=== PATIENT | male | born 1945 | race Caucasian/White ===

== ENCOUNTER 2018-07-12 16:23 | Inpatient (IN) ==
--- NOTE | 2018-07-12 16:52 | XR ---
EXAM DATE: 07/12/2018 4:50 PM EST AGE/SEX: 72 years / Male INDICATIONS: Chest pain. CLINICAL DATA: This is the patient's initial encounter. Patient reports that signs and symptoms have been present for 1 day and indicates a pain score of 3/10. MEDICAL/SURGICAL HISTORY: Chronic obstructive pulmonary disease. None. COMPARISON: No prior exams available for comparison. FINDINGS: A single AP view of the chest demonstrates the lungs to be symmetrically aerated without evidence of mass, infiltrate or effusion. The cardiomediastinal contours are unremarkable. Osseous structures a re intact. CONCLUSION: Negative examination. Electronically signed by: Florencio Obando MD Board Certified Radiologist 07/12/2018 4:51 PM EST
--- NOTE | 2018-07-12 17:01 | ED ---
HPI General Chief Complaint: Chest Pain Stated Complaint: Chest Pain Time Seen by Provider: 07/12/18 16:33 Source: patient Mode of arrival: ambulatory Limitations: no limitations History of Present Illness HPI narrative: The patient is a 72-year-old male who presents to the emergency department for chest pain. The patient states he has had a 2-week history of intermittent chest pain. The chest pain is described as "a belt around my chest ", nonradiating, worse with exertion, and alleviated at rest. The patient does note mild shortness of breath with exertion without any nausea or vomiting. He does note intermittent diaphoresis. The patient does have a history of hypertension but denies any known history of hyperlipidemia, diabetes , or history of CAD. The patient does have a history of tobacco use. [facility] and [facility] advised him to come to the emergency department. Symptoms are moderate, worse with exertion, and alleviated at rest. The patient received aspirin and nitroglycerin prior to arrival and is chest pain-free upon arrival. MD complaint: Reports chest pain STEMI Alert: No Onset (ago): week(s) Duration: intermittent Onset: during exertion Pain location: Reports substernal Severity: moderate Severity scale (1-10): 5 Quality: Reports tightness Pain radiation: Reports none Relieving factors: rest Exacerbating factors: exertion Associated symptoms: Reports diaphoresis and dyspnea Treatments prior to arrival chest pain: Reports aspirin and nitroglycerin Related Data Allergies Allergy/AdvReac Type Severity Reaction Status Date / Time No Known Allergies Allergy Verified 07/12/18 16:34 Review of Systems ROS: all other systems reviewed are negative [facility] Social History Social History Second Hand Smoke Exposure: Yes Smoking Status: Current every day smoker Tobacco Type: Cigarettes How Often Do You Have a Drink Containing Alcohol: 4 or more times a week Recent Travel in [facility] within the Last 8 Weeks: No Recent Out of Country Travel within the Last 8 Weeks: No Immunization History Tetanus Immunization: <5 Years Exam Narrative Exam Narrative: GENERAL: Awake, alert, pleasant 72-year-old male who appears his stated age and is in no acute respiratory distress. SKIN: Focused skin assessment warm/dry. HEAD: Atraumatic. Normocephalic. EYES: Pupils equal and round. No scleral icterus. No injection or drainage. ENT: No nasal bleeding or discharge. Mucous membranes pink and moist. NECK: Trachea midline. No JVD. CARDIOVASCULAR: Regular rate and rhythm. No murmur appreciated. RESPIRATORY: No accessory muscle use. Clear to auscultation. Breath sounds equal bilaterally. GASTROINTESTINAL: Abdomen soft, non-tender, nondistended. No rebound tenderness. MUSCULOSKELETAL: No obvious deformities. No clubbing. No cyanosis. No edema. NEUROLOGICAL: Awake and alert. No obvious cranial nerve deficits. Motor grossly within normal limits. Normal speech. PSYCHIATRIC: Appropriate mood and affect; insight and judgment normal. Course Initial Documented Vital Signs Pulse Rate 76 07/12/18 16:37 Respiratory Rate 18 07/12/18 16:37 Blood Pressure 197/96 H 07/12/18 16:37 Pulse Oximetry 97 07/12/18 16:37 Last Documented Vital Signs Pulse Rate 76 07/12/18 16:37 Respiratory Rate 18 07/12/18 16:37 Blood Pressure 197/96 H 07/12/18 16:37 Pulse Oximetry 98 07/12/18 16:42 Critical Care Time Critical Care Time: Yes Total Critical Care Time: 35 Attestation: Aggregate critical care time was 35 minutes. Time to perform other separately billable procedures was not included in the critical care time. My time did not include minutes spent treating any other patients simultaneously or on activities that did not directly contribute to the patient's treatment. The services I provided to this patient were to treat and/or prevent clinically significant deterioration that could result in: Arrhythmia, dysrhythmia, myocardial infarction, sudden , cardiomyopathy. I provided critical care services requiring my management, as noted below: Chart data review, documentation time, medication orders and management, vital sign assessments/reviewing monitor data, ordering and reviewing lab tests, ordering and interpreting/reviewing x-rays and diagnostic studies, care of the patient and discussion of the patient with the admitting physicians. Medical Decision Making MDM Narrative Medical decision making narrative: IV was established, labs are drawn and sent, and the patient was placed on cardiac telemetry monitoring and continuous pulse oximetry monitoring. EKG was ordered and interpreted. The patient received aspirin and nitroglycerin sublingual prior to arrival, his chest pain-free upon arrival. Troponin and CPK were sent to lab. The patient's EKG is unremarkable. Chest x-ray is negative. Troponin is positive at 0.06. The patient has hypertension and tobacco use, has exertional chest pain with tightness that is alleviated at rest, sounds like classic angina. Therefore, the on-call android ios developer was paged to evaluate if the patient should be placed on heparin, he may benefit from cardiac catheterization and/or further evaluation with stress testing. The patient will be admitted to the on-call medical service. I discussed the patient with Dr. Tripathi who agrees with heparinization, patient will be kept n.p.o. after midnight. I discussed the patient with the medical service who agrees with admission. Medical Screen Exam Complete: Yes Emergency Medical Condition: Yes Differential Diagnosis Differential Diagnosis: Differential diagnosis includes STEMI, ACS, cardiomyopathy, pulmonary embolism, deconditioning, COPD exacerbation. Lab Data Result diagrams: 07/12/18 16:50 07/12/18 16:50 Lab Results 07/12/18 07/12/18 Range/Units 16:50 16:50 WBC 6.1 (4.0-11.0) th/mm3 RBC 4.29 L (4.50-5.90) mil/mm3 Hgb 14.5 (13.0-17.0) gm/dL Hct 42.6 (39.0-51.0) % MCV 99.3 (80.0-100.0) fL MCH 33.9 (27.0-34.0) pg MCHC 34.1 (32.0-36.0) % RDW 13.1 (11.6-17.2) % Plt Count 150 (150-450) th/mm3 MPV 9.3 (7.0-11.0) fL Neut % (Auto) 66.6 (16.0-70.0) % Lymph % (Auto) 24.8 (9.0-44.0) % [place] % (Auto) 6.4 (0.0-8.0) % Eos % (Auto) 1.6 (0.0-4.0) % Baso % (Auto) 0.6 (0.0-2.0) % Neut # (Auto) 4.1 (1.8-7.7) th/mm3 Lymph # (Auto) 1.5 (1.0-4.8) th/mm3 [place] # (Auto) 0.4 (0.0-0.9) th/mm3 Eos # (Auto) 0.1 (0.0-0.4) th/mm3 Baso # (Auto) 0.0 (0.0-0.2) th/mm3 WBC Differential . Differential Comment Auto diff final Sodium 141 (136-145) meq/L Potassium 3.8 (3.5-5.1) meq/L Chloride 108 H (98-107) meq/L Carbon Dioxide 28.1 (21.0-32.0) meq/L Anion Gap 5 (5-15) meq/L BUN 14 (7-18) mg/dL Creatinine 0.92 (0.60-1.30) mg/dL Estimated GFR 81 L (>89) mL/min Random Glucose 93 (74-106) mg/dL Calcium 8.7 (8.5-10.1) mg/dL Magnesium 1.8 (1.5-2.5) mg/dL Total Bilirubin 0.4 (0.2-1.0) mg/dL AST 13 L (15-37) U/L ALT 17 (12-78) U/L Alkaline Phosphatase 62 (45-117) U/L Total Creatine Kinase 89 (39-308) U/L Troponin I 0.06 H (0.02-0.05) ng/mL Total Protein 6.8 (6.4-8.2) g/dL Albumin 3.6 (3.4-5.0) g/dL Lipase 68 L (73-393) U/L Imaging Data Radiologist's impression: Chest X-Ray 07/12/18 16:34 CONCLUSION: Negative examination. ECG Data EKG Prior to Arrival: Yes Attestation: I personally reviewed and interpreted this ECG as follows: Interpretation: EKG reveals normal sinus rhythm with a rate of 79. No ischemic changes or ectopy noted. Discharge Plan Discharge Disposition Patient Disposition: ED Admit(ED Internal Use Only) Discharge Condition Condition: Stable Discharge Order Discharge Orders: ED Use Only Admit Order (Routine); Ordered 07/12/18 Ordered By: Del Mcguire Discharge Details Diagnosis: ACS (acute coronary syndrome) Physicians Team ED Provider: Del Mcguire Primary Care Provider: [facility] Other Providers: Adalberto Tripathi Discharge Instructions Patient Printed Instructions: Chest Pain (ED) Status ED Status: Admitted Patient
[2018-07-12 17:04] LABS: Baso % (Auto) 0.6 % (0.0-2.0); Eos # (Auto) 0.1 th/mm3 (0.0-0.4); Eos % (Auto) 1.6 % (0.0-4.0); Hematocrit 42.6 % (39.0-51.0); Hemoglobin 14.5 gm/dL (13.0-17.0); Lymph # (Auto) 1.5 th/mm3 (1.0-4.8); Lymph % (Auto) 24.8 % (9.0-44.0); Mean Corpuscular HGB Conc 34.1 % (32.0-36.0); Mean Corpuscular Hemoglobin 33.9 pg (27.0-34.0); Mean Corpuscular Volume 99.3 fL (80.0-100.0); Mean Platelet Volume 9.3 fL (7.0-11.0); Mono # (Auto) 0.4 th/mm3 (0.0-0.9); Mono % (Auto) 6.4 % (0.0-8.0); Neut # (Auto) 4.1 th/mm3 (1.8-7.7); Neut % (Auto) 66.6 % (16.0-70.0); Platelet Count 150 th/mm3 (150-450); Red Blood Count 4.29 mil/mm3 (4.50-5.90); Red Cell Distribution Width 13.1 % (11.6-17.2); White Blood Count 6.1 th/mm3 (4.0-11.0)
[2018-07-12 17:19] LABS: Albumin 3.6 g/dL (3.4-5.0); Anion Gap 5 meq/L (5-15); Aspartate Aminotransferase 13 U/L (15-37); Blood Urea Nitrogen 14 mg/dL (7-18); Calcium 8.7 mg/dL (8.5-10.1); Carbon Dioxide 28.1 meq/L (21.0-32.0); Chloride 108 meq/L (98-107); Glomerular Filtration Rate 81 mL/min (>89); Glucose,Random 93 mg/dL (74-106); Lipase 68 U/L (73-393); Magnesium 1.8 mg/dL (1.5-2.5); Potassium 3.8 meq/L (3.5-5.1); Sodium 141 meq/L (136-145)
[2018-07-12 17:20] LABS: Alanine Aminotransferase 17 U/L (12-78)
[2018-07-12 17:24] LABS: Alkaline Phosphatase 62 U/L (45-117); Total Protein 6.8 g/dL (6.4-8.2); Troponin I 0.06 ng/mL (0.02-0.05)
[2018-07-12 17:25] LABS: Creatine Kinase 89 U/L (39-308)
[2018-07-12] MEDS ORDERED: Heparin Drip 25,000 UNIT/250 ML BAG IV.CONT PRN (18:01)
[2018-07-12] MEDS ORDERED: Heparin 10,000 UNITS/10 ML Vial (for IV use) IV.PUSH STA (18:01)
[2018-07-12] MEDS ORDERED: Bisacodyl 10 MG Supp RECTAL PRN (18:16)
[2018-07-12] MEDS ORDERED: Acetaminophen 325 MG Tablet PO PRN (18:16)
[2018-07-12 19:12] LABS: Activated Partial Thrombo Time 28.1 sec (23.4-31.7)
--- NOTE | 2018-07-12 19:15 | P.HPIM ---
History of Present Illness Primary Care Physician: [facility] Chief Complaint: Chest pain History of Present Illness: 72-year-old gentleman presents with complaints of midsternal left-sided chest pain and tightness has been intermittent for the past 2 weeks. Onset is with exertion he has to stop and catch his breath and feels a tightness across his left chest moderate severe associated with shortness of breath that improves with slowing down and resting. He denies radiation, diaphoresis, nausea vomiting or palpitations. He was trying to set up outpatient appointment with his primary care physician when the nurse recommended he go to the emergency room. He denies any cardiac history. He states he recently stopped all his pain chronic pain medications and his antidepressant because he started vaping medical marijuana. He believes that his recent Botox injection in the cervical spine 2 weeks ago that he had done for essential tremor caused worsening shortness of breath and numbness and lower 70 weakness. He also feels some shortness of breath may be related to the fact that he switch to vaping and was using it too much. Breathing is better since he cut back. PMhx: Hypertension, COPD, chronic hepatitis B, benign essential tremors, chronic pain syndrome with sciatica PSXhx: Fatty tumor removed from his back, most surgery x2 on his face SOChx: He smoked a bonk and recently switched to vaping, using medical marijuana., Was drinking vodka heavily about a month ago but now only occasionally FAMhx: Father had coronary artery disease, brother had an [facility] and 2 vessel bypass at 75 years old Inpatient Certification Inpatient Certification: I certify that the inpatient services were ordered in accordance with Medicare regulations governing the order. This includes certification that hospital inpatient services are reasonable and necessary and in the case of services not specified as inpatient-only under 42 CFR 419.22(n), that they are appropriately provided as inpatient services in accordance to with the 2-midnight benchmark under 43 CFR 412.3(e) Review of Systems Review of Systems: all other systems reviewed are negative [facility] Social History Social History Substance History: No History of Abuse Second Hand Smoke Exposure: No Smoking Status: Never smoker Tobacco Type: Cigarettes How Often Do You Have a Drink Containing Alcohol: Never Recent Travel in [place] within the Last 8 Weeks: No Recent Out of Country Travel within the Last 8 Weeks: No Immunization History Tetanus Immunization: <5 Years Medications and Allergies Allergies Allergy/AdvReac Type Severity Reaction Status Date / Time No Known Allergies Allergy Verified 07/12/18 16:34 Active Medications: Active Medications Acetaminophen (Tylenol) 650 mg PO Q4H PRN PRN Reason: Temp > 100.4 Al Hydroxide/Mg Hydroxide (Milk Of Magnesia Liq) 30 ml PO Q12H PRN PRN Reason: Mild Constipation Bisacodyl (Dulcolax Supp) 10 mg RECTAL DAILY PRN PRN Reason: SEVERE CONSITIPATION Heparin Sodium (Porcine) (Heparin Inj) 2,500 units IV.PUSH UNSCH PRN PRN Reason: aPTT 25-39 Heparin Sodium/Dextrose (Heparin/D5w 25,000 U/250 Ml) 25,000 unit in 250 mls @ 0.12 mls/hr IV.CONT TITRATE PRN; Protocol PRN Reason: Per Protocol Lactulose (Lactulose Liq) 30 ml PO DAILY PRN PRN Reason: SEVERE CONSITIPATION Ondansetron HCl (Zofran Inj) 4 mg IV.PUSH Q6H PRN PRN Reason: NAUSEA OR VOMITING Senna/Docusate Sodium (Janice-Colace) 1 tab PO BID [facility] Sennosides (Senokot) 17.2 mg PO Q12H PRN PRN Reason: Moderate Constipation Sodium Chloride (Ns Flush) 2 ml IV.FLUSH UNSCH PRN PRN Reason: FLUSH AFTER USING IV ACCESS Sodium Chloride (Ns Flush) 2 ml IV.FLUSH PRN PRN PRN Reason: FLUSH AFTER USING IV ACCESS Sodium Chloride (Ns Flush) 2 ml IV.FLUSH BID [facility] Physical Exam Vital signs: Last Vital Signs Pulse 81 07/12/18 18:41 Resp 20 07/12/18 18:41 BP 134/63 07/12/18 18:41 Pulse Ox 96 07/12/18 18:41 Intake & Output 07/10/18 07/11/18 07/12/18 07/13/18 06:59 06:59 06:59 06:59 Weight 97.522 kg GEN well-developed well-nourished white 72-year-old male awake alert oriented to person time and place, pleasant in no acute distress speaking in full sentences, HEENT normocephalic atraumatic, Pupils equal reactive, sclerae anicteric, extraocular motion intact, mucosa is moist. posterior pharynx without exudate NECK supple no JVD trachea midline thyroid smooth not enlarged ANT CHEST WALL without mass or tenderness to palpation HEART S1-S2 regular without murmur gallops or clicks LUNGS clear to auscultation without wheeze rales or rhonchi , full symmetric expansion, no dullness to percussion BACK exam is no CVA tenderness or mass ABDOMEN soft nondistended positive bowel sounds no guarding rebound rigidity LYMPH NODES no cervical, axillary or inguinal adenopathy noted EXTREMITIES no clubbing cyanosis or significant edema, peripheral pulses palpable +2 NEUROLOGIC cranial nerves II through XII appear grossly intact, strength is 5 out of 5 symmetrical no clonus or rigidity SKIN warm and dry with good turgor, no other rash or sores noted Results Labs CBC & Chem 7: 07/12/18 16:50 07/12/18 16:50 Imaging Impressions Chest X-Ray 07/12/18 16:34 CONCLUSION: Negative examination. Caprini VTE Risk Assessment Caprini VTE Risk Assessment: Moderate/High Risk (score >= 2) Caprini Risk Assessment Model: Point Value = 1 Point Value = 2 Point Value = 3 Point Value = 5 Age 41-60 Minor surgery BMI > 25 kg/m2 Swollen legs Varicose veins or History of unexplained or recurrent spontaneous Oral contraceptives or hormone replacement Sepsis (< 1 month) Serious lung disease, including pneumonia (< 1 month) Abnormal pulmonary function Acute myocardial infarction Congestive heart failure (< 1 month) History of inflammatory bowel disease Medical patient at bed rest Age 61-74 Arthroscopic surgery Major open surgery (> 45 min) Laparoscopic surgery (> 45 min) Malignancy Confined to bed (> 72 hours) Immobilizing plaster cast Central venous access Age >= 75 History of VTE Family history of VTE Factor V Leiden Prothrombin [id number] Lupus anticoagulant Anticardiolipin antibodies Elevated serum homocysteine Heparin-induced thrombocytopenia Other congenital or acquired thrombophilia Stroke (< 1 month) Elective arthroplasty Hip, pelvis, or leg fracture Acute spinal cord injury (< 1 month) Prophylaxis Regimen: Total Risk Factor Score Risk Level Prophylaxis Regimen 0-1 Low Early ambulation 2 Moderate Order ONE of the following: *Sequential Compression Device (SCD) *Heparin 5000 units SQ BID 3-4 Higher Order ONE of the following medications: *Heparin 5000 units SQ TID *Enoxaparin/Lovenox 40 mg SQ daily (WT < 150 kg, CrCl > 30 mL/min) *Enoxaparin/Lovenox 30 mg SQ daily (WT < 150 kg, CrCl > 10-29 mL/min) *Enoxaparin/Lovenox 30 mg SQ BID (WT < 150 kg, CrCl > 30 mL/min) AND/OR *Sequential Compression Device (SCD) 5 or more Highest Order ONE of the following medications: *Heparin 5000 units SQ TID (Preferred with Epidurals) *Enoxaparin/Lovenox 40 mg SQ daily (WT < 150 kg, CrCl > 30 mL/min) *Enoxaparin/Lovenox 30 mg SQ daily (WT < 150 kg, CrCl > 10-29 mL/min) *Enoxaparin/Lovenox 30 mg SQ BID (WT < 150 kg, CrCl > 30 mL/min) AND *Sequential Compression Device (SCD) Assessment and Plan Plan [place]- asa, bb, ntg, hep gtt, tele, cardiac enzymes and cardiology consult, plan for cath in am, HTN - cont home meds COPD - stable nebs prn DEPRESSION ANXIETY - took himself off his meds recently, stable CHRONIC PAIN SYNDROME - using medical marijuana at home
[2018-07-12 19:39] LABS: Troponin I 0.08 ng/mL (0.02-0.05)
[2018-07-12] MEDS: Senna/Docusate Sodium 8.6/50 MG Tablet PO SCH (21:06)
[2018-07-13] MEDS ORDERED: Heparin 10,000 UNITS/10 ML Vial (for IV use) IV.PUSH PRN (00:01)
[2018-07-13 01:53] LABS: Troponin I 0.07 ng/mL (0.02-0.05)
[2018-07-13] MEDS ORDERED: Metoprolol Tartrate 25 MG Tablet PO SCH (05:00)
[2018-07-13 07:44] LABS: Hematocrit 40.5 % (39.0-51.0); Hemoglobin 13.7 gm/dL (13.0-17.0); Mean Corpuscular HGB Conc 33.9 % (32.0-36.0); Mean Corpuscular Hemoglobin 33.4 pg (27.0-34.0); Mean Corpuscular Volume 98.4 fL (80.0-100.0); Mean Platelet Volume 9.1 fL (7.0-11.0); Platelet Count 142 th/mm3 (150-450); Red Blood Count 4.12 mil/mm3 (4.50-5.90); Red Cell Distribution Width 12.8 % (11.6-17.2); White Blood Count 4.1 th/mm3 (4.0-11.0)
--- NOTE | 2018-07-13 08:32 | P.CONCA ---
History of Present Illness Primary [facility] Provider: [facility] Chief Complaint: Chest pain History of Present Illness: 72-year-old male smoker with chronic pain who presented for chest pain. The patient states that for the past 2 weeks he has been noticing chest pressure across the front of his chest when he exerts himself with activities such as mowing the lawn. He states he rests and then chest pain usually goes away in 5 minutes. Associated shortness of breath. He has not noticed any radiation of the pain, but unsure because he has chronic pain everywhere. Denies associated nausea. He continues to smoke 1 pack/day. He is concerned because his father and brother had heart bypasses in their 70s. His EKG shows NSR with no ischemic changes. His troponins are 0.06, 0.08, 0.07. Review of Systems All other systems reviewed negative except as stated in HPI PMFSH - History History Provided By: Patient, Medical Record - Tobacco History Second Hand Smoke Exposure: No Tobacco Use In Past 30 Days: Yes Smoking Status: Current every day smoker Tobacco Type: Cigarettes - Alcohol History How Often Do You Have a Drink Containing Alcohol: Never - Substance Use History Substance History: No History of Abuse - Travel History Recent Travel in the [place] Within the Last 8 Weeks: No Recent Travel Out of the Country Within the Last 8 Weeks: No - Immunization History Tetanus Immunization: <5 Years Medications and Allergies Allergies Allergy/AdvReac Type Severity Reaction Status Date / Time No Known Allergies Allergy Verified 07/12/18 16:34 Active Medications: Active Medications Acetaminophen (Tylenol) 650 mg PO Q4H PRN PRN Reason: Temp > 100.4 Al Hydroxide/Mg Hydroxide (Milk Of [place]) 30 ml PO Q12H PRN PRN Reason: Mild Constipation Bisacodyl (Dulcolax Supp) 10 mg RECTAL DAILY PRN PRN Reason: SEVERE CONSITIPATION Heparin Sodium (Porcine) (Heparin Inj) 2,500 units IV.PUSH UNSCH PRN PRN Reason: aPTT 25-39 Last Admin: 07/13/18 01:16 Dose: 2,500 units Heparin Sodium/Dextrose (Heparin/D5w 25,000 U/250 Ml) 25,000 unit in 250 mls @ 0.12 mls/hr IV.CONT TITRATE PRN; Protocol PRN Reason: Per Protocol Last Titration: 07/13/18 04:06 Dose: 1,100 units/hr, 11 mls/hr Lactulose (Lactulose Liq) 30 ml PO DAILY PRN PRN Reason: SEVERE CONSITIPATION Ondansetron HCl (Zofran Inj) 4 mg IV.PUSH Q6H PRN PRN Reason: NAUSEA OR VOMITING Senna/Docusate Sodium (Janice-Colace) 1 tab PO BID [facility] Last Admin: 07/12/18 21:06 Dose: Not Given Sennosides (Senokot) 17.2 mg PO Q12H PRN PRN Reason: Moderate Constipation Sodium Chloride (Ns Flush) 2 ml IV.FLUSH UNSCH PRN PRN Reason: FLUSH AFTER USING IV ACCESS Sodium Chloride (Ns Flush) 2 ml IV.FLUSH PRN PRN PRN Reason: FLUSH AFTER USING IV ACCESS Sodium Chloride (Ns Flush) 2 ml IV.FLUSH BID [facility] Last Admin: 07/12/18 21:06 Dose: Not Given Exam Vital signs: Vital Signs 07/12/18 16:37 07/12/18 16:42 07/12/18 18:41 Temperature Pulse Rate 76 81 Respiratory Rate 18 20 Blood Pressure 197/96 H 134/63 Pulse Oximetry 97 98 96 07/12/18 19:16 07/12/18 20:00 07/13/18 00:00 Temperature 98.6 F 98.0 F Pulse Rate 71 68 59 L Respiratory Rate 16 18 18 Blood Pressure 130/61 152/73 H 121/69 Pulse Oximetry 96 98 96 07/13/18 04:00 Temperature 97.5 F L Pulse Rate 53 L Respiratory Rate 18 Blood Pressure 133/71 Pulse Oximetry 94 L Intake & Output 07/12/18 07/13/18 07/13/18 18:59 06:59 18:59 Weight 215 lb 214 lb 15.987 oz Other: Weight On Admission 214 lb 15.987 oz Narrative: GENERAL: Well-developed well-nourished. In no acute distress. NECK: No carotid bruits. No JVD. CARDIOVASCULAR: Regular rate and rhythm. No murmur appreciated. RESPIRATORY: No accessory muscle use. Clear to auscultation. Breath sounds equal bilaterally. MUSCULOSKELETAL: No clubbing or cyanosis. No edema. NEUROLOGICAL: Awake and alert. Normal speech. Results 07/13/18 07:02 07/12/18 16:50 Cardiac Enzymes 07/12/18 07/12/18 07/12/18 Range/Units 16:50 16:50 18:48 AST 13 L (15-37) U/L Troponin I 0.06 H 0.08 H (0.02-0.05) ng/mL B-Natriuretic Peptide 28 (0-100) pg/mL 07/13/18 Range/Units 00:39 AST (15-37) U/L Troponin I 0.07 H (0.02-0.05) ng/mL B-Natriuretic Peptide (0-100) pg/mL Coagulation 07/12/18 07/12/18 07/13/18 Range/Units 16:50 18:48 00:39 PT 10.0 (9.8-11.6) sec APTT 28.1 42.9 H D (23.4-31.7) sec B-Natriuretic Peptide 28 (0-100) pg/mL 07/13/18 Range/Units 07:02 PT (9.8-11.6) sec APTT 45.2 H (23.4-31.7) sec B-Natriuretic Peptide (0-100) pg/mL CBC 07/12/18 07/13/18 Range/Units 16:50 07:02 WBC 6.1 4.1 (4.0-11.0) th/mm3 RBC 4.29 L 4.12 L (4.50-5.90) mil/mm3 Hgb 14.5 13.7 (13.0-17.0) gm/dL Hct 42.6 40.5 (39.0-51.0) % Plt Count 150 142 L (150-450) th/mm3 Neut # (Auto) 4.1 (1.8-7.7) th/mm3 Lymph # (Auto) 1.5 (1.0-4.8) th/mm3 [place] # (Auto) 0.4 (0.0-0.9) th/mm3 Eos # (Auto) 0.1 (0.0-0.4) th/mm3 Baso # (Auto) 0.0 (0.0-0.2) th/mm3 Comprehensive Metabolic Panel 07/12/18 Range/Units 16:50 Sodium 141 (136-145) meq/L Potassium 3.8 (3.5-5.1) meq/L Chloride 108 H (98-107) meq/L Carbon Dioxide 28.1 (21.0-32.0) meq/L BUN 14 (7-18) mg/dL Creatinine 0.92 (0.60-1.30) mg/dL Calcium 8.7 (8.5-10.1) mg/dL AST 13 L (15-37) U/L ALT 17 (12-78) U/L Alkaline Phosphatase 62 (45-117) U/L Total Protein 6.8 (6.4-8.2) g/dL Albumin 3.6 (3.4-5.0) g/dL Intake and Output 07/12/18 07/13/18 07/13/18 22:59 06:59 14:59 Other: Weight 214 lb 15.987 oz Weight On Admission 214 lb 15.987 oz - Imaging and Cardiology Imaging: Impressions Chest X-Ray 07/12/18 16:34 CONCLUSION: Negative examination. Assessment and Plan - Plan 72-year-old male smoker with chronic pain who presented for chest pain Unstable angina: N.p.o. for [facility] today. Currently on heparin GTT, continue for now. Start aspirin 81 mg daily. Check lipid profile. Hold off on beta- sarah for now with resting bradycardia. Discussed Condition With: Patient, RN, Dr. Tripathi - Attending Attestation Suggestive of unstable anginal symptoms consistent with acute coronary syndrome High pretest likelihood for coronary artery disease Proceed directly with cardiac catheterization Risks, benefits, and alternatives discussed with the patient, patient understood and agrees to proceed.
[2018-07-13] MEDS: Senna/Docusate Sodium 8.6/50 MG Tablet PO SCH ×2 (09:00→22:34)
[2018-07-13 10:05] LABS: Chol/HDL Ratio 2.91 Ratio; HDL Cholesterol 50.8 mg/dL (40.0-60.0)
[2018-07-13] MEDS ORDERED: fentaNYL Citrate Inj 100 MCG/2 ML Ampul ONE (11:26)
[2018-07-13] MEDS ORDERED: Heparin/NS PF Inj 1,000 ML ONE (11:26)
[2018-07-13] MEDS ORDERED: Heparin 10,000 UNITS/10 ML Vial (for IV use) ONE (11:27)
--- NOTE | 2018-07-13 11:51 | CATHPROC ---
Patient Name: Sonido Hameed Study #: [id number] Initial MD: Adalberto Tripathi Date of : 1945 Study Date: 07/13/2018 Cardiac Catheterization Report 07/13/2018 12:13:29 PM Financial #: [id number] 1 of 10 Patient Name: Sonido Hameed Study #: [id number] Initial MD: Adalberto Tripathi Date of : 1945 Study Date: 07/13/2018 Entire Case Report Patient Information Patient Name Sonido Hameed Date of 1945 Age 72 years Financial # [id number] Gender M AlternateID Lab Number 3 Room Number G78 Height (in) 71.0 Height (cm) 180.3 BSA 2.17 Weight (lbs) 214.0 Weight (kg) 97.3 Patient Address/Phone Number Home Address [facility] Home Phone Number [address] [facility] [address] Study Information Study Number Admission Scheduled Start Study Start [id number] Jul 12 2018 6:22PM 07/13/2018 Jul 13 2018 10:45AM Basye Service Cardiac Pacer/ICD Admit Source Facility Department Emergency department [facility] Physician and Clinical Staff Initial Adalberto Osuna Electrical Equipment Assembler Evangelina Cat,RN Other cathlab, cathlab Recorder Jefry Chapman RCIS(BS) Scrub Inga Rooney RT(R) Procedures Performed Procedure Location (Site) Vessel Name Coronary Angiograms LCA Left Coronary Coronary Angiograms RCA Right Coronary L Heart Cath 07/13/2018 12:13:29 PM Financial #: [id number] 2 of 10 Patient Name: Sonido Hameed Study #: [id number] Initial MD: Adalberto Tripathi Date of : 1945 Study Date: 07/13/2018 Equipment Time Asian Art Curator Description Size Mfg Part Number Used/Scraped TRANSDUCER, TRUWAVE [id number] 10:46 JOHNS MORRISON * Used W/STOCKCOCK *[id number] 534-518T *[id number] 534-523T *[id number] 10:46 MEDLINE INDUSTRIES BLANKET,WARM AIR CCL * Used *[id number] 10:46 PowerFile PACK, CCL CUSTOM * Used *[id number] 10:46 PowerFile SUPPORT, ARTERIAL ADULT [id number] *[id number] Used BAND, RADIAL COMPRESSION TR [id number] 11:46 Lanyon 24CM Used SHORT 24 *[id number] SHEATH, FR6 RADIAL PRELUDE 10:46 Lanyon FR 6 [id number] Used EASE 11CM [id number] 10:46 Lanyon WIRE, EXCHANGE 260CM 3MMJ 260CM Used *[id number] 10:46 NAMIC MANIFOLD, 4 PORT * Used *[id number] 10:46 NYCOMED OMNIPAQUE, 350 MG, 150ML 150ML [id number] Used Insurance Information Insurance Payor [facility], Medicare Third Alliance Party Third Alliance Party Number NF [facility] History: Allergies Allergy Reaction No Known Allergies History: Risk Factors Family History of Hypertension Dyslipidemia Previous VT Previous Heart Failure Premature CAD Yes No Yes No No Prior Valve Prior PCI Prior CABG Surgery No No No Cerebrovascular Peripheral Artery Chronic Lung On Dialysis Diabetes Disease Disease Disease No No No Yes No History: Symptoms/Diagnosis Selection Items Chest pain 07/13/2018 12:13:29 PM Financial #: [id number] Patient Name: Sonido Hameed Study #: [id number] Initial MD: Adalberto Tripathi Date of : 1945 Study Date: 07/13/2018 History: Stress Tests Stress or Imaging Studies Performed No History: Other Disease Selection Items HTN History: Other Current Smoker Method Packs a Day Years Used Pack Years Yes Cigarettes 1 54 54 Labs Hgb (g/dl) Hct (%) WBC (l/cumm) Platelets (thousands) 11.60-17.00 35.00-51.00 4.00-11.00 150.00-450.00 13.7 40.5 4.1 142 Glucose (mg/dl) BUN (mg/dl) Creatinine (mg/dl) BUN:Creatinine (1:x) 74.00-106.00 7.00-18.00 0.50-1.30 10.00-20.00 93 14 0.9 15.6 Na (meq/l) K (meq/l) 136.00-145.00 3.50-5.10 141 3.8 INR (PTT:PT) 0.90-1.10 1 Troponin I (ng/ml) CPK-MB (ng/ML) 0.02-0.05 0.50-3.60 0.07 Not Drawn Medication Medication Total Dose (Bolus/Oral) Medication Total Dosage/Unit 1% XYLOCAINE 2 mL FENTANYL 75 mcg HEPARIN 3000 units NTG (IC) 200 mcg VERSED 3 mg 07/13/2018 12:13:29 PM Financial #: [id number] Patient Name: Sonido Hameed Study #: [id number] Initial MD: Adalberto Tripathi Date of : 1945 Study Date: 018 Medications (Bolus/Oral) Medication Time Given Dosage/Unit Administered By Reason 07/13/2018 11:30:36 VERSED 2 mg Evangelina Cat AM 2 mg VERSED given in lab by Evangelina Cat RN in Left Forearm via Peripheral IV. Ordered by Adalberto Tripathi. 07/13/2018 11:30:46 FENTANYL 50 mcg Evangelina Cat AM 50 mcg FENTANYL given in lab by Evangelina Cat RN in Left Forearm via Peripheral IV. Ordered by Adalberto Ríos. 07/13/2018 11:34:59 1% XYLOCAINE 2 mL Adalberto Tripathi AM 2 mL 1% XYLOCAINE given in lab by Adalberto Tripathi in Right Radial via Subcutaneous. 07/13/2018 11:36:10 FENTANYL 25 mcg Evangelina Cat AM 25 mcg FENTANYL given in lab by Evangelina Cat RN in Left Forearm via Peripheral IV. Ordered by Adalberto Ríos. 07/13/2018 11:36:35 NTG (IC) 200 mcg Adalberto Tripathi AM 200 mcg NTG (IC) given in lab by Adalberto Tripathi in Right Radial via Intra-arterial. 07/13/2018 11:38:19 VERSED 1 mg Evangelina Cat AM 1 mg VERSED given in lab by Evangelina Cat RN in Left Forearm via Peripheral IV. Ordered by Adalberto Tripathi. 07/13/2018 11:39:09 HEPARIN 3000 units Evangelina Cat AM 3000 units HEPARIN given in lab by Evangelina Cat RN in Left Forearm via Peripheral IV. Ordered by Adalberto Tripathi. Medication (Drip) Medication Time Given Dosage/Unit Concentration/Unit Diluent (ml) Solutio n 07/13/2018 11:16:35 IV Solutions 0 mL (IV) 500 NaCl .9 AM IV Solutions given in lab by Evangelina Cat, NADIA via Peripheral IV. Pump/Drip Flow = 20 ml/hr using N aCl .9. Ordered by Adalberto Tripathi. 07/13/2018 12:13:29 PM Financial #: [id number] 5 of 10 Patient Name: Sonido Hameed Study #: [id number] Initial MD: Adalberto Tripathi Date of : 1945 Study Date: 07/13/2018 Initial Case Assessment Cardiovascular HR Rhythm NIBP Chest Pain 72 nsr 180/88 0 Edema Present Skin color Skin None Normal Warm Dry Circulatory - Right Pulses Dorsalis Pedis Femoral Radial 2 2 2 Scale (0,1,2,3,4,d) Scale (0,1,2,3,4,d) Neurological State Oriented to time-place- Alert Moves all extremities person Respiration - General Respiration Rate SpO2 (%) (B/min) 15 93 Final Case Assessment Cardiovascular HR Rhythm NIBP Chest Pain 76 nsr 166/94 0 Edema Present Skin color Skin None Normal Warm Dry Circulatory - Right Pulses Dorsalis Pedis Femoral Radial 2 2 2 Scale (0,1,2,3,4,d) Scale (0,1,2,3,4,d) Neurological State Oriented to time-place- Alert Moves all extremities person Respiration - General Respiration Rate SpO2 (%) (B/min) 15 93 07/13/2018 12:13:29 PM Financial #: [id number] 6 of 10 Patient Name: Sonido Hameed Study #: [id number] Initial MD: Adalberto Tripathi Date of : 1945 Study Date: 8 Vitals Summary Pain Time HR NIBP SpO2 Resp Temp EtCO2 Apnea Darlene Paulino Comment Level 11:22:32 70 154/117 99.0 12 10 0 2 11:27:38 71 180/88 100.0 13 10 0 2 11:32:39 65 164/87 99.0 12 10 0 2 11:36:53 62 142/72 98.0 20 10 0 2 11:42:27 73 166/94 92.0 8 10 0 2 11:46:47 75 126/75 93.0 11 10 0 2 Darlene Score Summary Time Activity Resp Circ LOC Color Total Score 11:22:32 2 2 2 2 2 10 11:27:38 2 2 2 2 2 10 11:32:39 2 2 2 2 2 10 11:36:53 2 2 2 2 2 10 11:42:27 2 2 2 2 2 10 11:46:47 2 2 2 2 2 10 Darlene Score Definition Table Activity - 0 Activity - 1 Activity - 2 No Movement to Command Weak Hand Grasp Lift Head, Good Hand Grasp Respiration - 0 Respiration - 1 Respiration - 2 Apneic or Obstructed Shallow Breath, Airway Adjunct Deep Breath, Cough Freely Circulation - 0 Circulation - 1 Circulation - 2 B/P > 50% Admission B/P B/P > 20-50% Admission B/P B/P Stable X3 Level of Consciousness - 0 Level of Consciousness - 1 Level of Consciousness - 2 Not Responding Arousable On Calling Awake and Aware Color - 0 Color- 1 Color - 2 Cyanotic Lips, Nailbed, Skin Pale, Dusky [place] Or Normal Chronological Log Time Study Chronological Log 11:06:11 Patient arrived via Bed. 11:06:11 Patient Name, D.O.B, / Armband Verified By R.N. 11:06:12 Consent signed by the physician and the patient and verified by the [facility] staff. 11:06:13 Pre-op and post- op instructions given; patient acknowledges understanding of instruction s. 11:06:14 Presedation assessment performed by [facility] RN. 11:06:15 Allens test performed on the right radial and ulnar artery. POSITIVE. 11:06:20 Immediate Presedation assesment performed by physician. 07/13/2018 12:13:29 PM Financial #: [id number] Patient Name: Sonido Hameed Study #: [id number] Initial MD: Adalberto Tripathi Date of : 1945 Study Date: 07/13/2018 11:06:21 Patient has been NPO for More than 6Hrs. 11:06:31 Patient Warmer Placed on the Table. 11:06:33 Maty Prominences Protected 11:06:34 A # 20 IV was noted in the Wrist (right). Grade = 0 11::35 History and physical on the chart or being dictated. 11:15:00 Reference ECG taken 11:15:11 MD arrived. 11:16:33 A # 20 IV was started in the Forearm (left). Grade = 0 IV Solutions given in lab by Evangelina Cat, NADIA via Peripheral IV. Pump/Drip Flow = 20 ml/hr u sing NaCl .9. Ordered 11:16:35 by Adalberto Tripathi. Vitals capture started with the following parameters, Patient=Adult, Interval=5 min, Initial Pr geudwq=969 mmHg, 11:17:39 Deflation Rate=5 mmHg, Cuff placed on Right Arm Vitals capture started with the following parameters, Patient=Adult, Interval=5 min, Initial Pr bjiqwc=163 mmHg, ::27 Deflation Rate=5 mmHg, Cuff placed on Right Arm Vitals capture started with the following parameters, Patient=Adult, Interval=5 min, Initial Pr xqynxc=731 mmHg, ::06 Deflation Rate=5 mmHg, Cuff placed on Right Arm 11::32 HR=70 bpm, IDGR=575/117 mmhg, SpO2=99.0 %, Resp=12 B/min, Pain=0, Darlene=10, Paulino=2 11:24:42 Right Radial and groin(s) prepped with 2% chlorhexidine, and draped after a 3 min. waiting time. Assessment: Initial Case, HR=72 BPM, Rhythm=nsr, IHJT=682/88 mmhg, Chest Pain=0, Edema=None, Co ella=Normal, Skin = Warm, Dry 11:27:23 Right Pulses: Rocky Ped=2, Femoral=2, Radial=2 Neurological: State=Alert, Ox3, FRAUSTO Respiration: Resp=15 B/min, SpO2=93 % 11:27:38 HR=71 bpm, QLPU=303/88 mmhg, WgJ1=099.0 %, Resp=13 B/min, Pain=0, Darlene=10, Paulino=2 11:30:11 Contrast Scanned 11:30:12 Immediate Presedation assesment performed by physician. Time Out. Correct patient, correct procedure, correct physician, labs, allergies, and equipment verified with mushroom laborer 11:30:13 team present. Fire risk assesment completed (see hard stop sheet for coding). Time Out Conc urred by MD and individual staff in procedure. 11:30:36 2 mg VERSED given in lab by Evangelina Cat RN in Left Forearm via Peripheral IV. Ordered by Adalberto Tripathi. 11:30:46 50 mcg FENTANYL given in lab by Evangelina Cat RN in Left Forearm via Peripheral IV. Orde red by Adalberto Tripathi. 11:32:39 HR=65 bpm, RQJJ=507/87 mmhg, SpO2=99.0 %, Resp=12 B/min, Pain=0, Darlene=10, Paulino=2 11:33:11 Pressure channel 1 zeroed. 11:34:57 Case Start 11:34:59 2 mL 1% XYLOCAINE given in lab by Adalberto Tripathi in Right Radial via Subcutaneous. 11:35:37 Access site was Right Radial Artery . A SHEATH, FR6 RADIAL PRELUDE EASE 11CM FR 6 was advanced into the Radial (right) using the Perc utaneous 11:36:00 technique. 11:36:10 25 mcg FENTANYL given in lab by Evangelina Cat RN in Left Forearm via Peripheral IV. Orde red by Adalberto Tripathi. 11:36:35 200 mcg NTG (IC) given in lab by Adalberto Tripathi in Right Radial via Intra-arterial. 11:36:48 In the Radial (right) the SHEATH, FR6 RADIAL PRELUDE EASE 11CM FR [address] by Adalberto Tripathi. 11:36:53 HR=62 bpm, RMIW=085/72 mmhg, SpO2=98.0 %, Resp=20 B/min, Pain=0, Darlene=10, Paulino=2 A JR 5.0 INFINITI CATHETER FR 5 was advanced over a wire. OMNIPAQUE, 350 MG, 150ML 150ML was us ed for 11:36:55 injections. 07/13/2018 12:13:29 PM Financial #: [id number] Patient Name: Sonido Hameed Study #: [id number] Initial MD: Adalberto Tripathi Date of : 1945 Study Date: 07/13/2018 11:38:19 1 mg VERSED given in lab by Evangelina Cat RN in Left Forearm via Peripheral IV. Ordered by Adalberto Tripathi. Recorded Pressure: LV, HR=83, Condition=Condition 1 11:38:32 (Left Ventricle) LV 116/3/8 Recorded Pressure: LV, Ao, HR=80, Condition=Condition 1 11:38:38 (Left Ventricle) LV 112/3/6, (Aorta) Ao 114/65/86 Recorded Pressure: Ao, HR=68, Condition=Condition 1 11:38:59 (Aorta) Ao 123/70/96 11:39:05 The RCA was injected and visualized at various angles. OMNIPAQUE, 350 MG, 150ML 150ML used . 11:39:09 3000 units HEPARIN given in lab by Evangelina Cat RN in Left Forearm via Peripheral IV. O rdered by Adalberto Tripathi. After removing the current catheter a JL 3.5 INFINITI CATHETER FR 5 was advanced over a WIRE, E XCHANGE 260CM 11:39:36 3MMJ 260CM. 11:42:04 The LCA was injected and visualized at various angles. OMNIPAQUE, 350 MG, 150ML 150ML used . 11:42:27 HR=73 bpm, TKKE=652/94 mmhg, SpO2=92 %, Resp=8 B/min, Pain=0, Darlene=10, Paulino=2 11:45:00 Catheter was removed 11:45:02 Case End (Physician broke scrub) Assessment: Final Case, HR=76 BPM, Rhythm=nsr, MHTR=631/94 mmhg, Chest Pain=0, Edema=None, [place] r=Normal, Skin = Warm, Dry 11:45:44 Right Pulses: Rocky Ped=2, Femoral=2, Radial=2 Neurological: State=Alert, Ox3, FRAUSTO Respiration: Resp=15 B/min, SpO2=93 % 11:45:58 Catheter(s) removed without difficulty 11:46:00 Sterile dressing applied to site Radial Compression Device Used. 11 mLs of air placed in BAND, RADIAL COMPRESSION TR SHORT 24 24 CM. Affected 11:46:01 hand 92 % O2 saturation. 11:46:15 No case complications noted. 11:46:16 Cine recording checked. 11:46:16 Bedside Report will be given. 11:46:19 A Left Heart Cath was performed. 11:46:47 HR=75 bpm, YJXU=306/75 mmhg, SpO2=93.0 %, Resp=11 B/min, Pain=0, Darlene=10, Paulino=2 11:51:35 Vitals capture stopped. 11:51:36 Patient moved to stretcher Recorded Pressures: Condition 1 Time Chamber Pressure Manual Override (*) 11:38:32 LV 116/3/8 s/bd/ed 11:38:38 LV 112/3/6 s/bd/ed 11:38:38 Ao 114/65/86 s/d/m 11:38:59 Ao 123/70/96 s/d/m 07/13/2018 12:13:29 PM Financial #: [id number] Patient Name: Sonido Hameed Study #: [id number] Initial MD: Adalberto Tripathi Date of : 1945 Study Date: 07/13/2018 End Study - Contrast Media Used In Study Contrast Total Opened (mL) Total Used (mL) Total Wasted (mL) Omnipaque 350 30 30 0 End Study - Maximum Contrast Load Max Contrast Load (mL) 540.4 End Study - Radiation Exposure Fluoro Time Fluoro Dose (mGy) Cine Dose (uGym2) (minutes) 1.2 630 54180 End Study - Patient Disposition Complications Transferred To Interventional Outcome No [facility] Holding No attempt made 07/13/2018 12:13:29 PM Financial #: [id number]
[2018-07-13] MEDS ORDERED: Lidocaine 1% Inj 50 ML Vial INFILTRATN PRN (11:52)
--- NOTE | 2018-07-13 11:52 | P.PCN ---
Date of procedure: 07/13/18 Pre-op diagnosis: Cardiology Procedure: marsh buggy operator: Dread Tripathi MD Procedures performed: 1. Fluoroscopy with interpretation 2. Coronary angiography Methods: Risks, benefits, and alternatives were discussed with the patient. Patient understood and consented to the procedure. Patient was brought into the cardiac catheterization lab and placed on the catheterization table. The patient's right wrist was prepped and draped in a sterile fashion. The right wrist was anesthetized with 1% lidocaine. Right wrist was cannulated and a 6 Sami 11 cm sheath was placed without difficulty. 200 mcg of intra-arterial nitroglycerin was administered and 5000 units of intravenous heparin. Coronary angiography: The left main coronary artery was selectively engaged with a 5 Sami JL 3.5 Michele catheter. The right coronary circulation was selectively engaged with a 5 Sami JR 5 Michele catheter. 1. Left main coronary artery is short and angiographically normal 2. Left anterior descending coronary artery has a 70% stenosis at the bifurcation of the diagonal branch. The diagonal branch small to moderate caliber size with an 80% stenosis present. 3. Left circumflex coronary artery gives rise to a ramus intermedius branch with a 90% stenosis. The first obtuse marginal branch and subbranch also have 80% bifurcation stenosis present. 4. Right coronary is a dominant vessel giving rise to the posterior descending branch. The right coronary artery the proximal/mid right coronary has a 90% stenosis in the distal segment has a 50-60% stenosis Conclusions: 1. Severe multivessel coronary artery disease Plan: Guideline directed medical therapy. Sheath removed and Hemoband applied. Monitor for postprocedural complications. Obtain transthoracic echocardiogram We will consult cardiothoracic surgery for consideration of surgical revascularization.
[2018-07-13] MEDS ORDERED: Iohexol 350 MG/ML 50 ML Vial (for Cath Lab) IVCONTRAST ONE (12:31)
[2018-07-13] MEDS ORDERED: Bacitracin Oint 0.9 GM Packet TOPICAL ONE (13:00)
--- NOTE | 2018-07-13 13:55 | P.PNIM ---
Subjective Interval history: 72-year-old male admitted with unstable angina going for cardiac catheterization today Patient seen and examined earlier, doing okay, denies neck and chest pain palpitations dizziness shortness of breath, Physical Exam Vital signs: Last Vital Signs Temp 97.8 F 07/13/18 08:00 Pulse 57 L 07/13/18 08:30 Resp 16 07/13/18 08:00 BP 158/77 H 07/13/18 08:00 Pulse Ox 97 07/13/18 12:05 Intake & Output 07/11/18 07/12/18 07/13/18 07/14/18 06:59 06:59 06:59 06:59 Intake Total 260 / 260 Balance 260 / 260 awake alert weight 97.522 kg well-developed well-nourished 72-year-old white male Awake alert oriented no acute distress pleasant Heart S1-S2 regular mr Lungs clear to auscultation bilateral Abdomen soft nondistended positive bowel sounds Extremities no clubbing cyanosis no edema Results Labs CBC & Chem 7: 07/13/18 07:02 07/12/18 16:50 Imaging Imaging: Impressions Chest X-Ray 07/12/18 16:34 CONCLUSION: Negative examination. Assessment and Plan Plan [facility]-status post cardiac cath with finding of severe multivessel coronary artery disease, awaiting CT surgery consultation and recommendations HTN - cont home meds COPD - stable nebs prn DEPRESSION ANXIETY - took himself off his meds recently, stable CHRONIC PAIN SYNDROME - using medical marijuana at home DVT prophylaxisheparin drip Disposition: Pending clinical course Progress Note: Quality VTE Deep Vein Thrombosis/Pulmonary Embolism Present on Admission: No
[2018-07-13] MEDS ORDERED: Insulin Regular (For Infusion) 100 UNIT in Sodium Chlor 0.9% Inj 99 ML IV.CONT PRN (14:16)
[2018-07-13] MEDS ORDERED: Dextrose 50% in Water 50 ML Vial IV.PUSH PRN (14:16)
[2018-07-13] MEDS ORDERED: Sodium Chlor 0.9% Inj 77.5 ML, Papaverine Inj 60 MG, Nitroglycerin Inj 100 MCG, dilTIAZ... IRRIGATION SCH ×3 (14:30)
[2018-07-13] MEDS ORDERED: Sodium Chloride 0.9% Irr Bot 500 ML, ceFAZolin Inj 500 MG IRRIGATION SCH ×2 (14:30)
[2018-07-13] MEDS ORDERED: Primidone 50 MG Tablet PO SCH (14:30)
[2018-07-13] MEDS ORDERED: Chlorhexidine 4% Topical 120 APPLIC/120 ML Bottle TOPICAL SCH (14:30)
--- NOTE | 2018-07-13 14:54 | P.PNCV ---
- Note Subjective/Hospital Course: pt seen and evaluated, full consult to follow sts risk score discussed with pt RISK SCORES Procedure: Isolated CAB CALCULATE Risk of Mortality: 0.865% Renal Failure: 0.877% Permanent Stroke: 0.646% Prolonged Ventilation: 4.072% DSW Infection: 0.205% Reoperation: 1.931% Morbidity or Mortality: 6.771% Short Length of Stay: 53.452% Long Length of Stay: 2.644% Objective: Vital Signs - 24 hr 07/12/18 16:37 07/12/18 16:42 07/12/18 18:41 Temperature Pulse Rate 76 81 Respiratory Rate 18 20 Blood Pressure 197/96 H 134/63 Pulse Oximetry 97 98 96 07/12/18 19:16 07/12/18 20:00 07/13/18 00:00 Temperature 98.6 F 98.0 F Pulse Rate 71 68 59 L Respiratory Rate 16 18 18 Blood Pressure 130/61 152/73 H 121/69 Pulse Oximetry 96 98 96 07/13/18 04:00 07/13/18 08:00 07/13/18 08:30 Temperature 97.5 F L 97.8 F Pulse Rate 53 L 57 L 57 L Respiratory Rate 18 16 Blood Pressure 133/71 158/77 H Pulse Oximetry 94 L 96 07/13/18 12:05 Temperature Pulse Rate Respiratory Rate Blood Pressure Pulse Oximetry 97 Labs: Laboratory Results - last 12 hr 07/13/18 07/13/18 07/13/18 00:39 07:02 07:02 WBC 4.1 RBC 4.12 L Hgb 13.7 Hct 40.5 MCV 98.4 MCH 33.4 MCHC 33.9 RDW 12.8 Plt Count 142 L MPV 9.1 APTT 45.2 H Triglycerides 168 H Cholesterol 148 LDL Cholesterol, Calc 64 HDL Cholesterol 50.8 Cholesterol/HDL Ratio 2.91 Result Diagrams: 07/13/18 07:02 07/12/18 16:50
[2018-07-13] MEDS ORDERED: ceFAZolin Inj 2,000 MG in Sodium Chlor 0.9% Inj 80 ML IV.SIG SCH (15:00)
--- NOTE | 2018-07-13 15:45 | US ---
EXAM DATE: 07/13/2018 3:41 PM EST AGE/SEX: 72 years / Male INDICATIONS: Pre-Op Cardiac. CLINICAL DATA: This is the patient's initial encounter. Patient reports that signs and symptoms have been present for 1 day and indicates a pain score of 0/10. MEDICAL/SURGICAL HISTORY: Hypertension. Chronic obstructive pulmonary disease. Hepatitis B. Essential tremors. Chronic pain. ETOH abuse. Acute coronary syndrome. . Facial surgery. Fatty tumor back excision. Cardiac cath. COMPARISON: No prior exams available for comparison. TECHNIQUE: Venous ultrasound of both lower extremities was performed from the inguinal ligament to t he proximal calf. Real-time, color Doppler and spectral tracing, compression and augmentation techni ques were used. FINDINGS: Right Leg: Normal compression of the deep venous system from the inguinal region to the proximal luann f. No echogenic clot is seen. Normal response of the venous system to augmentation and respiration. Left Leg: Normal compression of the deep venous system from the inguinal region to the proximal calf . No echogenic clot is seen. Normal response of the venous system to augmentation and respiration. Other: None. CONCLUSION: 1. The study is negative for bilateral lower extremity deep venous thrombosis. Electronically signed by: Florencio Obando MD Board Certified Radiologist 07/13/2018 3:44 PM EST
--- NOTE | 2018-07-13 15:58 | US ---
EXAM DATE: 07/13/2018 3:43 PM EST AGE/SEX: 72 years / Male INDICATIONS: Pre-Op cardiac. CLINICAL DATA: This is the patient's initial encounter. Patient reports that signs and symptoms have been present for 1 day and indicates a pain score of 0/10. MEDICAL/SURGICAL HISTORY: Hypertension. Chronic obstructive pulmonary disease. Hepatitis B. Essential tremors. Chronic pain. ETOH abuse. Acute coronary syndrome. . Facial surgery. Fatty tumor back excision. Cardiac cath. COMPARISON: No prior exams available for comparison. MEASUREMENTS: RIGHT THIGH: Proximal:__8 mm Mid:__ 4 mm Distal:__3 mm LEFT THIGH: Proximal:__5 mm Mid:__4 mm Distal:__3 mm RIGHT CALF: Proximal:__3 mm Mid:__2 mm Distal:__2 mm LEFT CALF: Proximal:__4 mm Mid:__1 mm Distal:__1 mm FINDINGS: The venous system of the lower extremities are patent by color Doppler imaging. Measurements of the leg veins (in mm) are listed above. CONCLUSION: 1. Venous mapping study as described. Electronically signed by: Alejandro Sin MD Board Certified Radiologist 07/13/2018 3:56 PM EST
[2018-07-13] MEDS ORDERED: ceFAZolin 2 GM Premix Inj 2 GM/50 ML PIGGYBACK IV.SIG SCH (16:00)
--- NOTE | 2018-07-13 16:00 | US ---
EXAM DATE: 07/13/2018 3:39 PM EST AGE/SEX: 72 years / Male INDICATIONS: Pre-Op Cardiac CLINICAL DATA: This is the patient's initial encounter. Patient reports that signs and symptoms have been present for 1 day and indicates a pain score of 0/10. MEDICAL/SURGICAL HISTORY: Hypertension. Chronic obstructive pulmonary disease. Hepatitis B. Essential tremors. Chronic pain. ETOH abuse. Acute coronary syndrome. . Facial surgery. Fatty tumor back excision. Cardiac cath. COMPARISON: No prior exams available for comparison. VELOCITY PARAMETERS: ICA/CCA Ratio: Right 1.2 , Left 1.3 ICA: Right 116 cm/sec, Left 127 cm/sec CCA: Right 98 cm/sec, Left 95 cm/sec ECA: Right 117 cm/sec, Left 98 cm/sec Vertebral: Right 73 cm/sec antegrade, Left 52 cm/sec antegrade FINDINGS: Right Carotid: Moderate arteriosclerotic plaque is visualized.The waveforms are within normal limits . Left Carotid: Mild arteriosclerotic plaque is visualized. The waveforms are within normal limits. Other: None. CONCLUSION: 1. Right Internal Carotid Artery: Moderate calcified atherosclerotic plaquing in the right carotid b ulb and internal with no sonographic or Doppler findings of a hemodynamically significant stenosis 2. Left Internal Carotid Artery: Very mild atherosclerotic plaquing in the left internal carotid wit h no sonographic or Doppler findings of a hemodynamically significant stenosis. 3. Antegrade flow in both vertebral arteries Electronically signed by: Hema Estrada MD Board Certified Radiologist 07/13/2018 3:59 PM EST
--- NOTE | 2018-07-13 16:44 | MB ---
cc: Rosie Carlos APRN DATE: 07/13/2018 HISTORY OF PRESENT ILLNESS: This is a 72-year-old male; patient of primary care physician, Dr. Ophelia Wells of the [facility] and the [place]. Does not have an outside primary care physician. Presented to the emergency room yesterday with complaint of chest pain. He has been having chest pain on and off for the past couple of weeks. Noticed it initially while he was mowing his lawn; had a tightness in his chest, lasted about 10 minutes. He was also short of breath and it has occurred off and on for the past couple of weeks. He was trying to set up appointment with his primary care the [facility] and the nurse recommended to come to the emergency room. He denies any prior history of any cardiac disease. His risk factors include age, hypertension. He had, on admission, mildly elevated troponins; ruled in for a non-STEMI. Underwent cardiac catheterization showing a 4-vessel disease with a 70% proximal stenosis in the LAD. The diagonal was 75%, the OM was 80% and the RCA 90%. We were consulted to evaluate for coronary artery bypass grafting. PAST MEDICAL HISTORY: Includes chronic pain syndrome in his lower back with a bulging nerve. He also has had some recent Botox injections in the cervical spine 2 weeks ago, COPD, chronic hepatitis B, essential tremors, hypertension, Lyme disease, gastroesophageal reflux disease, major depressive disorder, and tobacco abuse. PAST SURGICAL HISTORY: Include fatty tumor removed on his back. He has had some facial surgery. ALLERGIES: HE HAS NO KNOWN ALLERGIES. HOME MEDICATIONS: Includes: 1. Wellbutrin. 2. Robaxin. 3. Naprosyn. 4. Omeprazole. 5. Primidone. 6. Flomax. 7. Trazodone. FAMILY HISTORY: A brother had an SD and bypass at age 75. Father had a history of coronary artery disease. SOCIAL HISTORY: The patient lives with his significant other, Sukh ____ . Drinks very rarely. Prior to that, he was drinking vodka on a regular basis. History of tobacco abuse since the age of 18. He does use medical marijuana by vaping. REVIEW OF SYSTEMS: GENERAL: No night sweats, fever, heat and cold intolerance. SKIN: No psoriasis, itching or hives. HEENT: No blurred vision, hearing loss. RESPIRATORY: No cough; shortness of breath. CARDIOVASCULAR: As above in the HPI. GASTROINTESTINAL: No diarrhea or vomiting. GENITOURINARY: No burning, frequency, urgency. CENTRAL NERVOUS SYSTEM: No history of TIA, CVA or seizure disorder. ENDOCRINOLOGY: No history of diabetes or hypothyroidism. PHYSICAL EXAMINATION: VITAL SIGNS: Blood pressure 130/70, heart rate of 60, afebrile, O2 saturation 97 on room air. GENERAL: The patient is awake, alert, in no acute distress. HEENT: Head is normocephalic, atraumatic. Pupils equal and reactive. Oral mucosa pink, moist. He does wear dentures to the uppers. He has got some ____ dental caries under his dentures. He has a partial denture plate. NECK: Supple. No JVD. HEART: Heart sounds S1, S2. Regular rate and rhythm. No audible rubs, murmurs, or gallops. LUNGS: Clear to auscultation. No wheezes, rales or rhonchi. ABDOMEN: Soft, nontender. No masses or organomegaly. EXTREMITIES: No cyanosis, clubbing or edema. SKIN: The patient had some tattoos to his upper chest and arms. He has no visible rashes or lesions. LABORATORY DATA: Lab works shows hemoglobin 13, hematocrit of 40, white cell count of 4.1, platelet count of 142. Sodium 141, potassium 3.8, BUN of 14, creatinine 0.92, AST 13, ALT 17. Troponin 0.08, triglycerides 168, cholesterol 148, LDL 64, HDL 50, INR 1.0. RADIOLOGICAL EXAM: Chest x-ray is unremarkable. ASSESSMENT AND PLAN: This is a 72-year-old male with multivessel coronary artery disease. Risk factors include hypertension, family history. At this point, the cardiac films have been evaluated by Dr. Kathy Magdaleno. Procedures, alternatives, and risks have been discussed with the patient. Plan is for coronary artery bypass grafting x4 to the LAD, ramus OM and RCA. Ejection fraction of 68%. PLAN: Will be for surgery on . The patient is agreeable to proceed. CARMEN Ayoub MD JRT/griselda/machelle , 03:00 PM , 03:11 PM
--- NOTE | 2018-07-13 16:53 | ECG ---
Date Performed: 07/12/2018 Time Performed: 16:34:15 PTAGE: 72 years EKG: Sinus rhythm BORDERLINE LEFT AXIS DEVIATION BORDERLINE ECG NO PREVIOUS TRACING DOCTOR: Toni Worthy Interpretating Date/Time 07/13/2018 16:51:57
--- NOTE | 2018-07-13 16:54 | ECG ---
Date Performed: 07/13/2018 Time Performed: 00:33:13 PTAGE: 72 years EKG: Sinus rhythm BORDERLINE LEFT AXIS DEVIATION MODERATE INTRAVENTRICULAR CONDUCTION DELAY BORDERLINE ECG PREVIOUS TRACING 07/12/18 @ 18.44.28 Since the previous tracing, no significant change noted DOCTOR: Toni Worthy Interpretating Date/Time 07/13/2018 16:52:49
--- NOTE | 2018-07-13 16:54 | ECG ---
Date Performed: 07/12/2018 Time Performed: 18:44:28 PTAGE: 72 years EKG: Sinus rhythm NORMAL ECG PREVIOUS TRACING : 07/12/2018 16.34 Since the previous tracing, no significant change noted DOCTOR: Toni Worthy Interpretating Date/Time 07/13/2018 16:52:15
[2018-07-13 16:55] LABS: Bilirubin,Urine Negative (Negative); Clarity,Urine Clear (Clear); Color,Urine Yellow (Yellw/Straw); Glucose,Urine (UA) Negative (Negative); Leukocyte Esterase,Urine Negative (Negative); Nitrite,Urine Negative (Negative); Specific Gravity,Urine 1.027 (1.002-1.035)
--- NOTE | 2018-07-13 17:49 | ECHRPT ---
Indication: CONCLUSIONS Normal left ventricular size. Wall thickness is measured at the upper limits of normal. The left ventricular systolic function is normal with an estimated ejection fraction in the range of 60-65%. No regional wall motion abnormalities are present. Trace mitral valve regurgitation. Minimal aortic valve sclerosis is present. BP: / HR: Rhythm: MEASUREMENTS (Male / Female) Normal Values Technical Quality:Very technically difficult study 2D ECHO LV Diastolic Diameter PLAX 4.8 cm 4.2 - 5.9 / 3.9 - 5.3 cm LV Systolic Diameter PLAX 3.2 cm IVS Diastolic Thickness 0.9 cm 0.6 - 1.0 / 0.6 - 0.9 cm LVPW Diastolic Thickness 1.1 cm 0.6 - 1.0 / 0.6 - 0.9 cm LV Relative Wall Thickness 0.4 RV Internal Dim ED PLAX 3.0 cm LVOT Diameter 2.0 cm M-MODE Aortic Root Diameter MM 3.5 cm LA Systolic Diameter MM 4.2 cm LA Ao Ratio MM 1.2 AV Cusp Separation MM 1.8 cm DOPPLER AV Peak Velocity 176.0 cm/s AV Peak Gradient 12.4 mmHg LVOT Peak Velocity 123.0 cm/s LVOT Peak Gradient 6.1 mmHg AV Area Cont Eq pk 2.1 cm Mitral E Point Velocity 77.5 cm/s Mitral A Point Velocity 87.9 cm/s Mitral E to A Ratio 0.9 LV E' Lateral Velocity 5.6 cm/s Mitral E to LV E' Lateral Ratio 13.9 LV E' Septal Velocity 6.3 cm/s Mitral E to LV E' Septal Ratio 12.2 TR Peak Velocity 293.0 cm/s TR Peak Gradient 34.3 mmHg Right Atrial Pressure 10.0 mmHg Pulmonary Artery Systolic Pressu 44.3 mmHg Right Ventricular Systolic Press 44.3 mmHg PV Peak Velocity 113.0 cm/s PV Peak Gradient 5.1 mmHg FINDINGS LEFT VENTRICLE Normal left ventricular size. Wall thickness is measured at the upper limits of normal. The left ventricular systolic function is normal with an estimated ejection fraction in the range of 60-65%. No regional wall motion abnormalities are present. RIGHT VENTRICLE Normal right ventricular size and systolic function. LEFT ATRIUM The left atrial size is normal. RIGHT ATRIUM The right atrial size is normal. ATRIAL SEPTUM Normal atrial septal thickness without atrial level shunting by limited color doppler interrogation. AORTA The aortic root and proximal ascending aorta are normal in size on limited imaging. MITRAL VALVE Trace mitral valve regurgitation. AORTIC VALVE Minimal aortic valve sclerosis is present. TRICUSPID VALVE Structurally normal tricuspid valve. No tricuspid valve stenosis or regurgitation. PULMONARY VALVE No pulmonary valve regurgitation or stenosis. VESSELS The inferior vena cava is normal in size. PERICARDIUM No pericardial effusion. Aric Elmore MD Edited by: backup administrator backup administrator (Electronically Signed) Final Date:13 July 2018 15:52 Amended: 13 July 2018 17:45
[2018-07-13 18:50] LABS: Hemoglobin A1c 5.6 % (4.3-6.0)
[2018-07-13] MEDS: buPROPion 150 MG 12 HR Tablet PO SCH (20:50)
[2018-07-13] MEDS: Primidone 50 MG Tablet PO SCH (21:30)
[2018-07-14 05:05] LABS: Hematocrit 40.3 % (39.0-51.0); Hemoglobin 13.9 gm/dL (13.0-17.0); Mean Corpuscular HGB Conc 34.5 % (32.0-36.0); Mean Corpuscular Hemoglobin 33.4 pg (27.0-34.0); Mean Corpuscular Volume 96.6 fL (80.0-100.0); Mean Platelet Volume 9.5 fL (7.0-11.0); Platelet Count 148 th/mm3 (150-450); Red Blood Count 4.17 mil/mm3 (4.50-5.90); Red Cell Distribution Width 12.9 % (11.6-17.2); White Blood Count 4.5 th/mm3 (4.0-11.0)
--- NOTE | 2018-07-14 08:45 | P.PNIM ---
Subjective Interval history: Patient reports he is feeling okay today. He denies any chest pain. Endorses slight left arm and shoulder discomfort. Physical Exam Vital signs: Last Vital Signs Temp 97.6 F 07/14/18 07:00 Pulse 52 L 07/14/18 07:00 Resp 16 07/14/18 07:00 BP 174/93 H 07/14/18 07:00 Pulse Ox 97 07/14/18 07:00 Intake & Output 07/12/18 07/13/18 07/14/18 07/15/18 06:59 06:59 06:59 06:59 Intake Total 1200 / 1200 Output Total 400 / 400 Balance 800 / 800 Weight 97.522 kg 91 kg Narrative: GENERAL: Well-developed well-nourished. In no acute distress. NECK: No carotid bruits. No JVD. CARDIOVASCULAR: Regular rate and rhythm. No murmur appreciated. RESPIRATORY: No accessory muscle use. Clear to auscultation. Breath sounds equal bilaterally. MUSCULOSKELETAL: No clubbing or cyanosis. No edema. NEUROLOGICAL: Awake and alert. Normal speech. Results Labs CBC & Chem 7: 07/14/18 04:02 07/12/18 16:50 Imaging Imaging: Impressions Carotid Doppler Study 07/13/18 14:16 CONCLUSION: 1. Right Internal Carotid Artery: Moderate calcified atherosclerotic plaquing in the right carotid bulb and internal with no sonographic or Doppler findings of a hemodynamically significant stenosis 2. Left Internal Carotid Artery: Very mild atherosclerotic plaquing in the left internal carotid with no sonographic or Doppler findings of a hemodynamically significant stenosis. 3. Antegrade flow in both vertebral arteries Lower Extremity Ultrasound 07/13/18 14:16 CONCLUSION: 1. Venous mapping study as described. Venous Doppler Study 07/13/18 14:16 CONCLUSION: 1. The study is negative for bilateral lower extremity deep venous thrombosis. Assessment and Plan Plan 72-year-old male admitted with unstable angina. Heart catheterization revealed severe multi vessel disease. Coronary artery disease: Status post heart cath which showed severe multivessel disease. CT surgery following. -Plan for heart catheterization tomorrow. -Continue statin and aspirin HTN - -Uncontrolled. Restart amlodipine at higher dose 10 mg daily. -Hold off on beta-sarah per cardiology recommendations. -Clonidine as needed COPD - stable nebs prn DEPRESSION ANXIETY - took himself off his meds recently, stable CHRONIC PAIN SYNDROME -patient used medical marijuana at home. Discussed with RN. Apparently has been using it in the bathroom here. Using a vapor. Per agriculture manager, the hospital policy does not allow the use of medical marijuana. I discussed this with the patient. DVT prophylaxisheparin drip Progress Note: Quality VTE Deep Vein Thrombosis/Pulmonary Embolism Present on Admission: No
--- NOTE | 2018-07-14 09:01 | P.PNCA ---
Subjective Interval history: Patient seen and examined. Still with bilateral arm and shoulder pain that he believes is due to neuropathic pain needing botox. No events on telemetry over night. No chest pain or dyspnea. Medications and Allergies Active Medications: Active Medications Acetaminophen (Tylenol) 650 mg PO Q4H PRN PRN Reason: Temp > 100.4 Al Hydroxide/Mg Hydroxide (Milk Of Magnesia Liq) 30 ml PO Q12H PRN PRN Reason: Mild Constipation Aspirin (Ecotrin) 81 mg PO DAILY [facility] Last Admin: 07/13/18 15:36 Dose: Not Given Bisacodyl (Dulcolax Supp) 10 mg RECTAL DAILY PRN PRN Reason: SEVERE CONSITIPATION Bupropion HCl (Wellbutrin Sr) 150 mg PO BID [facility] Last Admin: 07/13/18 20:50 Dose: Not Given Chlorhexidine Gluconate (Hibiclens 4% Topical) 1 applicatio TOPICAL BUILDING CERTIFIER [facility] Stop: 07/19/18 14:16 Sodium Chloride 77.5 ml/Papaverine HCl 60 mg/Nitroglycerin 100 mcg/Diltiazem HCl 100 mg 0 ml IRRIGATION BUILDING CERTIFIER [facility] Stop: 07/19/18 14:16 Sodium Chloride 500 ml/ (Cefazolin Sodium 500 mg) 0 ml IRRIGATION BUILDING CERTIFIER [facility] Stop: 07/19/18 14:18 Dextrose (D50w Vial) 50 ml IV.PUSH UNSCH PRN PRN Reason: PER HYPOGLYCEMIA PROTOCOL Insulin Human Regular 100 unit (/ Sodium Chloride) 100 mls @ 3 mls/hr IV.CONT TITRATE PRN; Protocol PRN Reason: See Protocol Cefazolin Sodium/Dextrose (Ancef 2 Gm Premix Inj) 2 gm in 50 mls @ 100 mls/hr IV.SIG BUILDING CERTIFIER [facility] Stop: 07/19/18 15:59 Lactulose (Lactulose Liq) 30 ml PO DAILY PRN PRN Reason: SEVERE CONSITIPATION Lidocaine HCl (Xylocaine 1% Inj (50 Ml)) 10 ml INFILTRATN UNSCH PRN PRN Reason: SHEATH REMOVAL Stop: 07/14/18 11:51 Lorazepam (Ativan Inj) 0.5 mg IV.PUSH UNSCH PRN PRN Reason: ANXIETY Stop: 07/14/18 12:59 Metoprolol Tartrate (Lopressor) 12.5 mg PO BUILDING CERTIFIER [facility] Stop: 07/19/18 14:18 Miscellaneous (Pill Splitter) 1 each OTHER PRN PRN PRN Reason: SEE LABEL COMMENTS Ondansetron HCl (Zofran Inj) 4 mg IV.PUSH Q6H PRN PRN Reason: NAUSEA OR VOMITING Primidone (Mysoline) 50 mg PO DAILY [facility] Primidone (Mysoline) 100 mg PO HS [facility] Last Admin: 07/13/18 21:30 Dose: 100 mg Senna/Docusate Sodium (Janice-Colace) 1 tab PO BID [facility] Last Admin: 07/13/18 22:34 Dose: Not Given Sennosides (Senokot) 17.2 mg PO Q12H PRN PRN Reason: Moderate Constipation Sodium Chloride (Ns Flush) 2 ml IV.FLUSH BID [facility] Last Admin: 07/13/18 20:54 Dose: 2 ml Sodium Chloride (Ns Flush) 2 ml IV.FLUSH PRN PRN PRN Reason: FLUSH AFTER USING IV ACCESS Tamsulosin HCl (Flomax) 0.4 mg PO DAILY [facility] Trazodone HCl (Desyrel) 50 mg PO DAILY [facility] Allergies Allergy/AdvReac Type Severity Reaction Status Date / Time No Known Allergies Allergy Verified 07/12/18 16:34 Home Medications Medication Instructions Recorded Confirmed Type amlodipine 5 mg PO DAILY 07/13/18 07/13/18 History ascorbic acid (vitamin C) 250 mg PO DAILY 07/13/18 07/13/18 History bupropion HCl 150 mg PO BID 07/13/18 07/13/18 History cholecalciferol (vitamin D3) 1,000 unit PO DAILY 07/13/18 07/13/18 History [Vitamin D3] methocarbamol 750 mg PO BID PRN 07/13/18 07/13/18 History naproxen 750 mg PO BID 07/13/18 07/13/18 History omeprazole 40 mg PO DAILY 07/13/18 07/13/18 History primidone 50 mg PO Q12H 07/13/18 07/13/18 History tamsulosin 0.4 mg PO DAILY 07/13/18 07/13/18 History trazodone 50 mg PO DAILY 07/13/18 07/13/18 History Physical Exam Vital signs: Vital Signs 07/13/18 12:05 07/13/18 16:17 07/13/18 17:00 Temperature 97.7 F Pulse Rate 62 76 Respiratory Rate 16 Blood Pressure 151/72 H Pulse Oximetry 97 64 L 07/13/18 18:00 07/13/18 19:00 07/13/18 19:58 Temperature 98.3 F Pulse Rate 64 68 68 Respiratory Rate 17 Blood Pressure 149/72 H Pulse Oximetry 97 07/13/18 21:00 07/13/18 22:00 07/13/18 23:00 Temperature 98.7 F Pulse Rate 60 57 L 88 Respiratory Rate 18 Blood Pressure 122/64 Pulse Oximetry 95 07/14/18 00:00 07/14/18 01:00 07/14/18 02:00 Temperature Pulse Rate 58 L 60 56 L Respiratory Rate Blood Pressure Pulse Oximetry 07/14/18 03:00 07/14/18 04:00 07/14/18 05:00 Temperature 97.9 F Pulse Rate 53 L 60 72 Respiratory Rate 18 Blood Pressure 108/84 Pulse Oximetry 97 07/14/18 05:15 07/14/18 07:00 Temperature 97.6 F Pulse Rate 73 52 L Respiratory Rate 16 Blood Pressure 174/93 H Pulse Oximetry 97 Intake & Output 07/13/18 07/14/18 07/14/18 18:59 06:59 18:59 Intake Total 860 / 860 340 / 340 Output Total 400 / 400 Balance 860 / 860 -60 / -60 Weight 91 kg Intake: IV 10 / 10 Heparin/NS PF Inj 1,000 ML @ 0 10 / 10 mls/hr .ROUTE .[facility] Rx#: [id number] Oral 600 / 600 340 / 340 Anesthesia Amount 250 / 250 Output: Urine 400 / 400 Other: # Voids 2 Date of Last Bowel Movement 07/13/18 07/13/18 Narrative: GENERAL: Well-developed well-nourished. In no acute distress. NECK: No carotid bruits. No JVD. CARDIOVASCULAR: Regular rate and rhythm. No murmur appreciated. RESPIRATORY: No accessory muscle use. Clear to auscultation. Breath sounds equal bilaterally. MUSCULOSKELETAL: No clubbing or cyanosis. No edema. NEUROLOGICAL: Awake and alert. Normal speech. Results 07/14/18 04:02 07/12/18 16:50 Cardiac Enzymes 07/12/18 07/12/18 07/12/18 Range/Units 16:50 16:50 18:48 AST 13 L (15-37) U/L Troponin I 0.06 H 0.08 H (0.02-0.05) ng/mL B-Natriuretic Peptide 28 (0-100) pg/mL 07/13/18 Range/Units 00:39 AST (15-37) U/L Troponin I 0.07 H (0.02-0.05) ng/mL B-Natriuretic Peptide (0-100) pg/mL Coagulation 07/12/18 07/12/18 07/13/18 Range/Units 16:50 18:48 00:39 PT 10.0 (9.8-11.6) sec APTT 28.1 42.9 H D (23.4-31.7) sec B-Natriuretic Peptide 28 (0-100) pg/mL 07/13/18 Range/Units 07:02 PT (9.8-11.6) sec APTT 45.2 H (23.4-31.7) sec B-Natriuretic Peptide (0-100) pg/mL Lipids 07/13/18 Range/Units 00:39 Triglycerides 168 H (42-150) mg/dL Cholesterol 148 (120-200) mg/dL HDL Cholesterol 50.8 (40.0-60.0) mg/dL Cholesterol/HDL Ratio 2.91 Ratio CBC 07/12/18 07/13/18 07/14/18 Range/Units 16:50 07:02 04:02 WBC 6.1 4.1 4.5 (4.0-11.0) th/mm3 RBC 4.29 L 4.12 L 4.17 L (4.50-5.90) mil/mm3 Hgb 14.5 13.7 13.9 (13.0-17.0) gm/dL Hct 42.6 40.5 40.3 (39.0-51.0) % Plt Count 150 142 L 148 L (150-450) th/mm3 Neut # (Auto) 4.1 (1.8-7.7) th/mm3 Lymph # (Auto) 1.5 (1.0-4.8) th/mm3 [place] # (Auto) 0.4 (0.0-0.9) th/mm3 Eos # (Auto) 0.1 (0.0-0.4) th/mm3 Baso # (Auto) 0.0 (0.0-0.2) th/mm3 Comprehensive Metabolic Panel 07/12/18 Range/Units 16:50 Sodium 141 (136-145) meq/L Potassium 3.8 (3.5-5.1) meq/L Chloride 108 H (98-107) meq/L Carbon Dioxide 28.1 (21.0-32.0) meq/L BUN 14 (7-18) mg/dL Creatinine 0.92 (0.60-1.30) mg/dL Calcium 8.7 (8.5-10.1) mg/dL AST 13 L (15-37) U/L ALT 17 (12-78) U/L Alkaline Phosphatase 62 (45-117) U/L Total Protein 6.8 (6.4-8.2) g/dL Albumin 3.6 (3.4-5.0) g/dL Intake and Output 07/13/18 07/14/18 07/14/18 22:59 06:59 14:59 Intake Total 600 / 600 340 / 340 Output Total 400 / 400 Balance 600 / 600 -60 / -60 Intake: Oral 600 / 600 340 / 340 Output: Urine 400 / 400 Other: # Voids 2 Date of Last Bowel Movement 07/13/18 07/13/18 Weight 91 kg - Imaging and Cardiology Imaging: Impressions Chest X-Ray 07/12/18 16:34 CONCLUSION: Negative examination. Carotid Doppler Study 07/13/18 14:16 CONCLUSION: 1. Right Internal Carotid Artery: Moderate calcified atherosclerotic plaquing in the right carotid bulb and internal with no sonographic or Doppler findings of a hemodynamically significant stenosis 2. Left Internal Carotid Artery: Very mild atherosclerotic plaquing in the left internal carotid with no sonographic or Doppler findings of a hemodynamically significant stenosis. 3. Antegrade flow in both vertebral arteries Lower Extremity Ultrasound 07/13/18 14:16 CONCLUSION: 1. Venous mapping study as described. Venous Doppler Study 07/13/18 14:16 CONCLUSION: 1. The study is negative for bilateral lower extremity deep venous thrombosis. Assessment and Plan - Plan 72-year-old male smoker with chronic pain who presented with unstable angina now s/p C yesterday and found with multivessel CAD. Unstable angina: Continue aspirin 81 mg daily. statin therapy. lipid profile is reasonable. Hold off on beta-sarah for now with resting bradycardia. Plan for CABG tomorrow.
[2018-07-14] MEDS: Primidone 50 MG Tablet PO SCH ×2 (09:04→20:22)
[2018-07-14] MEDS: traZODone 50 MG Tablet PO SCH (09:07)
[2018-07-14] MEDS: buPROPion 150 MG 12 HR Tablet PO SCH ×2 (09:07→20:21)
[2018-07-14] MEDS: Senna/Docusate Sodium 8.6/50 MG Tablet PO SCH ×2 (09:07→20:22)
[2018-07-14] MEDS ORDERED: amLODIPine 5 MG Tablet PO ONE (11:53)
[2018-07-14] MEDS ORDERED: amLODIPine 10 MG Tablet PO ONE (12:10)
--- NOTE | 2018-07-14 14:10 | P.PNCV ---
- Note Subjective/Hospital Course: 72-year-old male; patient of primary care physician, [facility] Does not have an outside primary care physician. Presented to the emergency room yesterday with complaint of chest pain. He has been having chest pain on and off for the past couple of weeks. Noticed it initially while he was mowing his lawn; had a tightness in his chest, lasted about 10 minutes. He was also short of breath and it has occurred off and on for the past couple of weeks. He was trying to set up appointment [facility] and the nurse recommended to come to the emergency room. He denies any prior history of any cardiac disease. His risk factors include age, hypertension. He on admission, mildly elevated troponins ruled in for a non-STEMI. Underwent cardiac catheterization showing a 4-vessel disease with a 70% proximal stenosis in the LAD. The diagonal was 75%, the OM was 80% and the RCA 90%. We were consulted to evaluate for coronary artery bypass grafting. PAST MEDICAL HISTORY: Includes chronic pain syndrome in his lower back with a bulging nerve. He also has had some recent Botox injections in the cervical spine 2 weeks ago, COPD, chronic hepatitis B, essential tremors, hypertension, Lyme disease, gastroesophageal reflux disease, major depressive disorder, and tobacco abuse, PTSD 07/14 remains chest pain free, very concerned about not being to use his medical marijuana while in the hospital since it has helped him get off anxiety meds for his PTSD prn xanax prescribed, also on trazodone Carotid US unremarkable FEV1 >3.0 stable for surgery in am Objective: Vital Signs - 24 hr 07/13/18 16:17 07/13/18 17:00 07/13/18 18:00 Temperature 97.7 F Pulse Rate 62 76 64 Respiratory Rate 16 Blood Pressure 151/72 H Pulse Oximetry 64 L 07/13/18 19:00 07/13/18 19:58 07/13/18 21:00 Temperature 98.3 F Pulse Rate 68 68 60 Respiratory Rate 17 Blood Pressure 149/72 H Pulse Oximetry 97 07/13/18 22:00 07/13/18 23:00 07/14/18 00:00 Temperature 98.7 F Pulse Rate 57 L 88 58 L Respiratory Rate 18 Blood Pressure 122/64 Pulse Oximetry 95 07/14/18 01:00 07/14/18 02:00 07/14/18 03:00 Temperature 97.9 F Pulse Rate 60 56 L 53 L Respiratory Rate 18 Blood Pressure 108/84 Pulse Oximetry 97 07/14/18 04:00 07/14/18 05:00 07/14/18 05:15 Temperature Pulse Rate 60 72 73 Respiratory Rate Blood Pressure Pulse Oximetry 07/14/18 07:00 07/14/18 08:00 07/14/18 09:00 Temperature 97.6 F Pulse Rate 51 L 64 76 Respiratory Rate 16 Blood Pressure 174/93 H Pulse Oximetry 97 07/14/18 10:00 07/14/18 11:00 07/14/18 12:00 Temperature 97.4 F L Pulse Rate 64 65 80 Respiratory Rate 16 Blood Pressure 213/100 H Pulse Oximetry 96 07/14/18 13:00 07/14/18 13:49 Temperature Pulse Rate 67 67 Respiratory Rate 16 Blood Pressure 150/87 H Pulse Oximetry 94 L GENERAL: somewhat anxious SKIN: Warm and dry. HEAD: Normocephalic. EYES: No scleral icterus. No injection or drainage. NECK: Supple, trachea midline. No JVD or lymphadenopathy. CARDIOVASCULAR: Regular rate and rhythm without murmurs, gallops, or rubs. RESPIRATORY: Breath sounds equal bilaterally. No accessory muscle use. GASTROINTESTINAL: Abdomen soft, non-tender, nondistended. MUSCULOSKELETAL: No cyanosis, or edema. BACK: Nontender without obvious deformity. No CVA tenderness. Labs: Laboratory Results - last 12 hr 07/14/18 04:02 WBC 4.5 RBC 4.17 L Hgb 13.9 Hct 40.3 MCV 96.6 MCH 33.4 MCHC 34.5 RDW 12.9 Plt Count 148 L MPV 9.5 Result Diagrams: 07/14/18 04:02 07/12/18 16:50 Telemetry: NSR - Plan (2) CAD (coronary artery disease), [place] coronary artery Plan: ASA, statin for surgery in am
[2018-07-15 05:10] LABS: Hematocrit 40.6 % (39.0-51.0); Hemoglobin 13.8 gm/dL (13.0-17.0); Mean Corpuscular HGB Conc 33.9 % (32.0-36.0); Mean Corpuscular Hemoglobin 33.5 pg (27.0-34.0); Mean Corpuscular Volume 98.7 fL (80.0-100.0); Mean Platelet Volume 9.5 fL (7.0-11.0); Platelet Count 150 th/mm3 (150-450); Red Blood Count 4.11 mil/mm3 (4.50-5.90); Red Cell Distribution Width 12.8 % (11.6-17.2); White Blood Count 4.6 th/mm3 (4.0-11.0)
[2018-07-15] MEDS ORDERED: Chlorhexidine Gluconate 2% 1 Pack (2 Cloths) TOPICAL ONE (05:25)
[2018-07-15] MEDS ORDERED: Sodium Chlor 0.9% Inj 500 ML IV.SIG SCH (06:00)
[2018-07-15] MEDS ORDERED: Heparin - SQ 10,000 UNITS/ML Vial ONE (06:22)
[2018-07-15] MEDS ORDERED: Midazolam Inj 5 MG/ML 1 ML Vial ONE (07:04)
[2018-07-15] MEDS ORDERED: fentaNYL Citrate Inj 250 MCG/5 ML Ampul ONE ×2 (07:04→07:13)
[2018-07-15] MEDS ORDERED: amLODIPine 10 MG Tablet PO SCH (09:00)
[2018-07-15] MEDS ORDERED: ceFAZolin 1 GM Premix Inj 1 GM/50 ML PIGGYBACK IV.SIG ONE (11:55)
[2018-07-15] MEDS ORDERED: Magnesium Sulfate Inj 2 GM in Sodium Chlor 0.9% Inj 96 ML IV.SIG PRN ×4 (12:25)
[2018-07-15] MEDS ORDERED: EPINEPHrine (1:1000) Inj 2 MG in Sodium Chlor 0.9% Inj 248 ML IV.CONT PRN (12:25)
[2018-07-15] MEDS ORDERED: Morphine Inj 4 MG/ML Vial IV.PUSH PRN (12:25)
[2018-07-15] MEDS ORDERED: Potassium Chlor 20 mEq Premix 20 MEQ/100 ML PIGGYBACK IV.SIG PRN ×2 (12:25)
[2018-07-15] MEDS ORDERED: hydrALAZINE HCl Inj 20 MG/ML Vial IV.PUSH PRN (12:25)
[2018-07-15] MEDS ORDERED: Calcium Chloride Inj 1 GM in Sodium Chlor 0.9% Inj 100 ML IV.SIG PRN (12:25)
[2018-07-15] MEDS ORDERED: Insulin Regular (For Infusion) 100 UNIT in Sodium Chlor 0.9% Inj 99 ML IV.CONT PRN (12:25)
[2018-07-15] MEDS ORDERED: Post-op Orders (for Pharmacy) OTHER STA (12:25)
[2018-07-15] MEDS ORDERED: Metoprolol Inj 5 MG/5 ML Vial IV.PUSH PRN (12:25)
[2018-07-15] MEDS ORDERED: RESP: Racemic Epinephrine 2.25% 0.5 ML Neb NEB PRN (12:25)
[2018-07-15] MEDS ORDERED: Calcium Chloride Inj 1 GM/10 ML Syringe IV.PUSH PRN (12:25)
[2018-07-15] MEDS ORDERED: Dexmedetomidine Inj 200 MCG in Sodium Chlor 0.9% Inj 48 ML IV.CONT PRN (12:25)
[2018-07-15] MEDS ORDERED: Potassium Chlor 40 mEq Premix 40 MEQ/100 ML PIGGYBACK ONE (12:26)
--- NOTE | 2018-07-15 12:34 | P.OP ---
Date of procedure: 07/15/18 Anesthesia: JACQUELINEA Surgeon: Kathy Magdaleno MD Operation and Findings: PREPROCEDURE DIAGNOSES 1. Severe Multi Vessel Coronary Artery Disease. 2. Acute Myocardial Infarction (NSTEMI) 3. Hepatitis B 4. Deeply Intramyocardial Coronary Arteries POSTPROCEDURE DIAGNOSES Same SURGICAL PROCEDURE 1. Urgent Off-pump Coronary Artery Bypass Grafting x 4 with Left Internal Mammary Artery (MCELROY) to Left Anterior Descending (LAD), reverse saphenous vein graft to obtuse Marginal branch of the left Circumflex artery, reverse saphenous vein graft to the distal right Coronary artery, reverse saphenous vein graft to the ramus marginalis 2. Ultrasound-Guided Dissection of the LAD 3. Left leg Endoscopic Vein [place] 4. Intraoperative Vein Mapping. SURGEON Kathy Magdaleno MD SAFETY INSTRUCTION POLICE OFFICER JACQUES Ahn ANESTHESIA General endotracheal STRATEGY LEAD Leo Ga, KENNEDY Altamirano MD PREPARATION ChloraPrep. COUNTS Needle, sponge, and instrument counts were correct. DRAINS Two 32-Turkish mediastinal tubes. COMPLICATIONS None. INDICATIONS FOR PROCEDURE The patient is a 72-year-old presenting with chest pain. Patient was noted to have mild to vessel coronary artery disease. The patient is being brought to the operating room for surgical revascularization therapy. PROCEDURE Patient was brought to the operating room and placed supine on the OR table. Following the induction of adequate general endotracheal anesthesia and placement of appropriate monitoring devices, intraoperative vein mapping was performed which revealed usable-caliber conduit in the left thigh and proximal calf, with the distal vein being too small to use. The patient was then prepped and draped in standard sterile fashion. Next, 2500 units of intravenous heparin was given. The left greater saphenous vein was harvested endoscopically. This appeared to be a useable-caliber conduit up to the mid calf. Simultaneously, a median sternotomy was performed and the left internal mammary artery dissected free off the posterior sternal table. The patient was systemically heparinized and anticoagulation monitored by serial ACT measurements. The internal mammary artery had excellent pulsatile flow in it and was a good-caliber conduit. The pericardium was then divided in the midline, the cradle created and targets analyzed. At this point, all anastomoses were performed in a beating-heart fashion using the Maquet stabilizing system. Of note, his coronary arteries were deeply intramyocardial and required meticulous dissection to identify and isolate. Ultrasound-guided hand probe was used to identify and isolate the LAD deep within the myocardium. The left internal mammary artery was anastomosed to the mid LAD (2 mm) in an end-to-side fashion using 7-0 Prolene. Segment of saphenous vein graft was then anastomosed to the OM1 (1.75 mm) in an end-to- side fashion using 7-0 Prolene. The next segment was anastomosed to the ramus marginalis (1.75 mm) in an end-to-side fashion using a running 7-0 Prolene. The final segment was anastomosed to the RCA (2 mm) in an end-to-side fashion using 7-0 Prolene. The proximal anastomoses were then constructed to the ascending aorta in a running manner using 6-0 Prolene. All anastomotic sites were inspected and appeared to be hemostatic and patent. Protamine solution was given. Strict hemostasis was assured. The closure was undertaken. 2 chest tubes were placed. The pericardium was reapproximated in the midline. The sternum was approximated using sternal wires. The muscular and fascial layer were then closed in 3 layers. The endoscopic vein harvest site was closed in 2 layers. The patient tolerated the procedure well and was transferred to CVICU in stable condition.
[2018-07-15] MEDS ORDERED: ceFAZolin Inj 2,000 MG in Sodium Chlor 0.9% Inj 80 ML IV.SIG SCH (13:00)
[2018-07-15] MEDS ORDERED: Potassium Chlor 20 mEq Premix 20 MEQ/100 ML PIGGYBACK IV.SIG ONE (13:07)
[2018-07-15] MEDS: fentaNYL Citrate Inj 100 MCG/2 ML Ampul IV.PUSH PRN ×5 (13:39→21:46)
--- NOTE | 2018-07-15 13:42 | XR ---
EXAM DATE: 07/15/2018 1:37 PM EST AGE/SEX: 72 years / Male INDICATIONS: Post-op CABG. CLINICAL DATA: This is the patient's initial encounter. Patient reports that signs and symptoms have been present for 1 day and indicates a pain score of 4/10. MEDICAL/SURGICAL HISTORY: . Hypertension. Chronic obstructive pulmonary disease. Hepatitis B. E ssential tremors. Chronic pain. ETOH abuse. Acute coronary syndrome. . Facial surgery. Fatty tumor b ack excision. Cardiac cath. [place] [facility] [place]. . FINDINGS: Midline chest tube and left thoracostomy tube are present. Right neck sheath and central line are pre sent in good position. There is mild atelectasis in the left lung base. Cardiac contours are satisfac tory. Sternotomy wires are present. CONCLUSION: Satisfactory postop appearance Electronically signed by: Thor Boss MD Board Certified Radiologist 07/15/2018 1:41 PM EST
[2018-07-15] MEDS: Potassium Chlor 20 mEq Premix 20 MEQ/100 ML PIGGYBACK IV.SIG PRN ×2 (13:45→16:13)
[2018-07-15] MEDS: Albumin Human 5% Inj 250 ML IV.SIG PRN ×2 (13:45→14:59)
[2018-07-15] MEDS: traZODone 50 MG Tablet PO SCH (13:46)
[2018-07-15] MEDS: Primidone 50 MG Tablet PO SCH ×2 (13:47→20:29)
[2018-07-15] MEDS: buPROPion 150 MG 12 HR Tablet PO SCH ×2 (13:47→20:29)
[2018-07-15] MEDS: Senna/Docusate Sodium 8.6/50 MG Tablet PO SCH ×2 (13:47→20:29)
[2018-07-15] MEDS ORDERED: RASS Change Order OTHER ONE (14:00)
[2018-07-15] MEDS: Ketorolac Inj 30 MG/ML (IVP) Vial IV.PUSH PRN (14:31)
[2018-07-15] MEDS: ceFAZolin 2 GM Premix Inj 2 GM/50 ML PIGGYBACK IV.SIG SCH ×2 (15:22→23:45)
--- NOTE | 2018-07-15 15:50 | P.DCO ---
- Diagnosis (1) S/P coronary artery bypass graft x 4 Status: Acute (2) ACS (acute coronary syndrome) Status: Acute (3) COPD (chronic obstructive pulmonary disease) Status: Chronic (4) CAD (coronary artery disease), [place] coronary artery Status: Acute (5) NSTEMI (non-ST elevated myocardial infarction) Status: Acute (6) PTSD (post-traumatic stress disorder) Status: Chronic - Home Health Nursing Order: Medical education, Signs/symptoms of disease process, Wound care and dressing changes, Nursing assessment with vital signs Instructions: PREVENA Single Use Negative Wound Therapy System Caregiver Instruction Sheet 1. A Prevena dressing system was applied to the chest incision during surgery , to promote wound healing. It works via a suction device (negative pressure wound therapy) to remove low to moderate levels of exudate (drainage) and infectious materials. We recommend that the device stay in place for up to seven days, from day of surgery. 2. Day of Surgery___// Day of Removal ____/ 3. The dressing should only be removed by a health personal care assistant. Please arrange removal of device to coincide with Home Health visit and or with Nursing staff at Rehab 4. If skin reddening or irritation of skin occurs, or excessive drainage, please notify the Cardiovascular Surgeons office at [phone]. 5. Light showering is permissible; however the pump should be disconnected and placed in safe location, where it will not get wet. The dressing should not be exposed to direct spray or submerged in water. No bath tub / shower only. Ensure the end of the tubing attached to the dressing is facing down so that water does not enter the top of the tube. 6. To remove Prevena dressing: press purple button to turn off device / remove the suction. Then disconnect the tubing from the pump. The fixation strips should be stretched away from the skin and the dressing lifted at one corner and peeled back until it has been fully removed. 7. After removal, it is ok to shower daily using liquid dial soap and clean wash cloth, rinse and pat dry, and leave incision open to air dry. For any concerns regarding Prevena dressing, and or wounds, please contact Shanta Parada, patient navigator at [phone] or notify the Cardiovascular Surgeons office at [phone]. Heart and Vascular Surgery patients *Special attention to sternal dressing Mandatory frequency Assess and evaluation, 4 days in a row The next week 3X week 2 times a week for 4 weeks 1 time a week for 5 weeks Schedule Heart and Vascular patients for full 60 day certification period Initial visit Review Open Heart Surgery Discharge Instructions (Sternal precautions, Activity, Elastic hose, Incision care, Driving, Incentive spirometry, Smoking, [place], Work and other) Need Betadine to paint incision Medication reconciliation Importance of follow up care/ check on appointments Make calendar record temperature daily When to call [facility] at Home nurse, review instructions, phone list Incentive Spirometry, demonstration Visit 1- Begin discharge instruction for patient family and/ or caregiver using teach back method- Signs and symptoms of infection Disease characteristics Medicines and side effects Foods and nutrition/ appetite Infection control/ hand washing/ hygiene Visit 2- Continue teaching Discharge instructions- include additional information on smoking cessation , sternal dressing (sternal vac) Visit 3- Continue teaching- Cough and deep breathing, incision monitoring. Choose my plate Visit 4- Continue teaching- Discuss limitations Discuss how they are feeling Discuss progress toward goals Remaining visits- continue teaching and monitoring For any questions please call : Thursday 8am-5pm Heart & Vascular Surgery Office ( Dr. Magdaleno & Dr. Laboy), After Hours / Nights (5pm -8am) Weekends and Holidays Please call [facility] Cardiac Intermediate Care Unit (CIC) Charge Nurse Incentive spirometry Q1 hr x 10, while awake, also use acapella device hourly whole awake Sternal Breast Bone Precautions: NO pushing or pulling, ( pt must use sternal pillow to support chest with all activities and with coughing ( takes up to 3 months breast bone to heal ) Daily incision care: ok to shower daily, no tub bath. Wash all incisions with liquid dial soap, clean wash cloth to each site, rinse and pat dry. Observe for any signs of infection, such as drainage which is dark yellow, morgan, green or foul smelling. Immediately report to the surgeon any drainage from the chest incision, or legs, and for any abnormal drainage from the chest tube sites. Notify surgeon if any temp >101.5 degrees F. When specialty dressing removed/ or if you do not have one, continue to shower daily as above, then rinse and pat incision dry and paint with betadine daily x 5 days. Allow steri strips to fall off if you have any. Avoid lotions, creams, salves, oils, etc. for the first month Please see attached forms for additional instructions regarding post Open Heart specialty wound vacuum dressings. [place] or Prevena , Dressing to be removed by Nursing staff on __07/22/18 F/U appointment: as per [place] instructions: PCP in 2 weeks, CV surgeon 2 weeks, [place] 3-4 weeks For any questions regarding incisions/ dressing / meds / post op care or above Symptoms, Thursday 8am-5pm Heart & Vascular Surgery Office ( Dr. Magdaleno & Dr. Laboy), After Hours / Nights (5pm -8am) Weekends and Holidays Please call [facility] Cardiac Intermediate Care Unit (CIC) Charge Nurse - Case Management Consult Case Management Consult-Home Health: Yes - Certification I have seen patient Sonido Hameed on 07/15/18. My clinical findings support the need for the requested home health care services because: Deconditioned with increased weakness I certify that my clinical findings support that this patient is homebound because: Post-op weakness
--- NOTE | 2018-07-15 16:00 | P.PNIM ---
Subjective Interval history: Patient seen post CABG. He is lethargic but otherwise stable. Discussed with RN Physical Exam Vital signs: Last Vital Signs Temp 96 F L 07/15/18 15:00 Pulse 67 07/15/18 15:33 Resp 17 07/15/18 15:33 BP 95/63 L 07/15/18 15:00 Pulse Ox 97 07/15/18 15:00 Intake & Output 07/13/18 07/14/18 07/15/18 07/16/18 06:59 06:59 06:59 06:59 Intake Total 1200 / 1200 2019 5800 / 5800 Output Total 400 / 400 3300 / 3300 1250 / 1250 Balance 800 / 800 -1280 / -1280 4550 / 4550 Weight 97.522 kg 91 kg 91 kg Narrative: GENERAL: Well-developed well-nourished. In no acute distress. NECK: No carotid bruits. No JVD. CARDIOVASCULAR: Regular rate and rhythm. No murmur appreciated. RESPIRATORY: No accessory muscle use. Clear to auscultation. Breath sounds equal bilaterally. MUSCULOSKELETAL: No clubbing or cyanosis. No edema. NEUROLOGICAL: Lethargic Urinary Catheter Management Indwelling Temp Sensing Catheter: Cath placed during this visit: yes Urethral indwelling: No Insertion date: 07/15/18 Insertion time: 07:40 Results Labs CBC & Chem 7: 07/16/18 04:30 07/16/18 04:30 Imaging Imaging: Impressions Chest X-Ray 07/15/18 12:25 CONCLUSION: Satisfactory postop appearance Assessment and Plan (1) S/P coronary artery bypass graft x 4: Code(s): Z95.1 - Presence of aortocoronary bypass graft Status: Acute (2) ACS (acute coronary syndrome): Code(s): I24.9 - Acute ischemic heart disease, unspecified Status: Acute (3) COPD (chronic obstructive pulmonary disease): Code(s): J44.9 - Chronic obstructive pulmonary disease, unspecified Status: Chronic (4) CAD (coronary artery disease), [place] coronary artery: Code(s): I25.10 - Atherosclerotic heart disease of [place] coronary artery without angina pectoris Status: Acute (5) NSTEMI (non-ST elevated myocardial infarction): Code(s): I21.4 - Non-ST elevation (NSTEMI) myocardial infarction Status: Acute (6) PTSD (post-traumatic stress disorder): Code(s): F43.10 - Post-traumatic stress disorder, unspecified Status: Chronic Plan 72-year-old male admitted with unstable angina. Heart catheterization revealed severe multi vessel disease. Coronary artery disease: Status post heart cath which showed severe multivessel disease. CT surgery following. -S/P CABG. Postsurgical care per CT surgery HTN - -Continue amlodipine 10 mg daily. -Hold off on beta-sarah per cardiology recommendations. -Clonidine as needed COPD - stable nebs prn DEPRESSION ANXIETY - took himself off his meds recently, stable CHRONIC PAIN SYNDROME -patient used medical marijuana at home. Discussed with RN. Apparently has been using it in the bathroom here. Using a vapor. Per automation manager, the hospital policy does not allow the use of medical marijuana. Previously discussed this with the patient. DVT prophylaxisheparin Progress Note: Quality VTE Deep Vein Thrombosis/Pulmonary Embolism Present on Admission: No _ (1) CAD (coronary artery disease), [place] coronary artery Qualifiers: Associated angina: [place] vs. transplanted heart: (2) COPD (chronic obstructive pulmonary disease) Qualifiers: COPD type: Chronic bronchitis type: Emphysema type:
[2018-07-15] MEDS: ALPRAZolam 0.25 MG Tablet PO PRN (20:29)
[2018-07-15] MEDS: Amiodarone 200 MG Tablet PO SCH (20:30)
[2018-07-16] MEDS: fentaNYL Citrate Inj 100 MCG/2 ML Ampul IV.PUSH PRN ×3 (01:00→06:23)
--- NOTE | 2018-07-16 04:47 | XR ---
EXAM DATE: 07/16/2018 4:35 AM EST AGE/SEX: 72 years / Male INDICATIONS: S/P CABG. CLINICAL DATA: This is the patient's subsequent encounter. Patient reports that signs and symptoms h ave been present for 3 days and indicates a pain score of Nonresponsive. MEDICAL/SURGICAL HISTORY: Hypertension. Chronic obstructive pulmonary disease. Hepatitis B. Ess ential tremors. Chronic pain. ETOH abuse. Acute coronary syndrome. Elevated troponin. CABG. Facial s urgery. Fatty tumor back excision. Cardiac cath. [place] [facility] [place] . FINDINGS: A single AP view of the chest demonstrates the lungs to be symmetrically aerated without evidence of mass, infiltrate or effusion. The cardiomediastinal contours are unremarkable. Osseous structures a re intact. The mediastinal drain, left chest tube and right IJ central line all in good position CONCLUSION: Median sternotomy wires and tube in good position. Lungs remain grossly clear Electronically signed by: Adalberto Chowdhury MD Board Certified Radiologist 07/16/2018 4:46 AM EST
[2018-07-16 05:08] LABS: Hematocrit 32.3 % (39.0-51.0); Hemoglobin 11.2 gm/dL (13.0-17.0); Mean Corpuscular HGB Conc 34.8 % (32.0-36.0); Mean Corpuscular Hemoglobin 33.8 pg (27.0-34.0); Mean Corpuscular Volume 97.3 fL (80.0-100.0); Mean Platelet Volume 9.3 fL (7.0-11.0); Platelet Count 118 th/mm3 (150-450); Red Blood Count 3.32 mil/mm3 (4.50-5.90); Red Cell Distribution Width 12.6 % (11.6-17.2); White Blood Count 7.4 th/mm3 (4.0-11.0)
[2018-07-16 05:34] LABS: Anion Gap 9 meq/L (5-15); Blood Urea Nitrogen 10 mg/dL (7-18); Calcium 7.9 mg/dL (8.5-10.1); Carbon Dioxide 23.8 meq/L (21.0-32.0); Chloride 108 meq/L (98-107); Glomerular Filtration Rate Greater Than 89 mL/min (>89); Glucose,Random 112 mg/dL (74-106); Magnesium 1.8 mg/dL (1.5-2.5); Potassium 3.9 meq/L (3.5-5.1); Sodium 141 meq/L (136-145)
[2018-07-16] MEDS: Ketorolac Inj 30 MG/ML (IVP) Vial IV.PUSH PRN ×2 (06:06→23:55)
--- NOTE | 2018-07-16 07:55 | ECG ---
Date Performed: 07/16/2018 Time Performed: 05:57:02 PTAGE: 72 years EKG: Sinus rhythm Lateral ST elevation, nonspecific, present on prior EKG Abnormal ECG NO PREVIOUS TRACING DOCTOR: Adalberto Tripathi Interpretating Date/Time 07/16/2018 07:53:35
[2018-07-16] MEDS: ceFAZolin 2 GM Premix Inj 2 GM/50 ML PIGGYBACK IV.SIG SCH ×3 (08:12→23:56)
[2018-07-16] MEDS ORDERED: Bisacodyl 10 MG Supp RECTAL PRN (08:52)
[2018-07-16] MEDS ORDERED: Sod Phosphate/Sod Biphosphate (Adult) Enema 133 ML Bottle RECTAL PRN (08:52)
[2018-07-16] MEDS ORDERED: Dextrose 50% in Water 50 ML Vial IV.PUSH PRN (08:52)
[2018-07-16] MEDS: Amiodarone 200 MG Tablet PO SCH ×2 (09:17→21:18)
[2018-07-16] MEDS: buPROPion 150 MG 12 HR Tablet PO SCH ×2 (09:17→21:19)
[2018-07-16] MEDS: Primidone 50 MG Tablet PO SCH ×2 (09:17→21:14)
[2018-07-16] MEDS: Senna/Docusate Sodium 8.6/50 MG Tablet PO SCH ×2 (09:18→21:19)
[2018-07-16] MEDS: traZODone 50 MG Tablet PO SCH (09:18)
[2018-07-16] MEDS: Multivitamin/Minerals Therapeutic Tablet PO SCH (09:23)
[2018-07-16] MEDS: Insulin NovoLOG Aspart Correctional Sugar Inj SQ SCH ×4 (09:49→23:56)
--- NOTE | 2018-07-16 10:04 | P.PNIM ---
Subjective Interval history: Patient is ambulating this morning. TEJ RN. No new issues. Progressing well post op. He expressed frustration because he cannot use his medical Marijuana in the Hospital. Physical Exam Vital signs: Last Vital Signs Temp 98.2 F 07/16/18 07:00 Pulse 77 07/16/18 09:07 Resp 14 07/16/18 09:16 BP 122/60 07/16/18 07:00 Pulse Ox 96 07/16/18 09:07 Intake & Output 07/14/18 07/15/18 07/16/18 07/17/18 06:59 06:59 06:59 06:59 Intake Total 1200 / 1200 2019 / 2020 6858 / 6858 274 / 274 Output Total 400 / 400 3300 / 3300 3410 / 3410 310 / 310 Balance 800 / 800 -1280 / -1280 3448 / 3448 -36 / -36 Weight 91 kg 91 kg 93 kg Narrative: GENERAL: Well-developed well-nourished. In no acute distress. CARDIOVASCULAR: Regular rate and rhythm. No murmur appreciated. RESPIRATORY: No accessory muscle use. Clear to auscultation. Breath sounds equal bilaterally. MUSCULOSKELETAL: No clubbing or cyanosis. No edema. NEUROLOGICAL: Non focal. Awake and alert. Urinary Catheter Management Indwelling Temp Sensing Catheter: Cath placed during this visit: yes, but has since been removed by the nurse Urethral indwelling: No Insertion date: 07/15/18 Insertion time: 07:40 Removal date: 07/15/18 Removal time: 17:36 Results Labs CBC & Chem 7: 07/16/18 04:30 07/16/18 04:30 Imaging Imaging: Impressions Chest X-Ray 07/15/18 12:25 CONCLUSION: Satisfactory postop appearance Chest X-Ray 07/16/18 05:00 CONCLUSION: Median sternotomy wires and tube in good position. Lungs remain grossly clear Assessment and Plan (1) S/P coronary artery bypass graft x 4: Code(s): Z95.1 - Presence of aortocoronary bypass graft Status: Acute (2) ACS (acute coronary syndrome): Code(s): I24.9 - Acute ischemic heart disease, unspecified Status: Acute (3) COPD (chronic obstructive pulmonary disease): Code(s): J44.9 - Chronic obstructive pulmonary disease, unspecified Status: Chronic (4) CAD (coronary artery disease), [place] coronary artery: Code(s): I25.10 - Atherosclerotic heart disease of [place] coronary artery without angina pectoris Status: Acute (5) NSTEMI (non-ST elevated myocardial infarction): Code(s): I21.4 - Non-ST elevation (NSTEMI) myocardial infarction Status: Acute (6) PTSD (post-traumatic stress disorder): Code(s): F43.10 - Post-traumatic stress disorder, unspecified Status: Chronic Plan 72-year-old male admitted with unstable angina. Heart catheterization revealed severe multi vessel disease. Coronary artery disease: Status post heart cath which showed severe multivessel disease. CT surgery following. -S/P CABG. Postsurgical care per CT surgery - Aspirin, Plavix, Amiodarone, Metoprolol. HTN - -Continue amlodipine 10 mg daily. -Clonidine as needed COPD - stable nebs prn DEPRESSION ANXIETY - took himself off his meds recently, stable CHRONIC PAIN SYNDROME -patient used medical marijuana at home. Per manager market intelligence, the hospital policy does not allow the use of medical marijuana. Discussed with the patient again and he understand the Hospital policy. DVT prophylaxisheparin Progress Note: Quality VTE Deep Vein Thrombosis/Pulmonary Embolism Present on Admission: No _ (1) CAD (coronary artery disease), [place] coronary artery Qualifiers: Associated angina: [place] vs. transplanted heart: (2) COPD (chronic obstructive pulmonary disease) Qualifiers: COPD type: Chronic bronchitis type: Emphysema type:
--- NOTE | 2018-07-16 10:21 | P.DIET ---
Nutritional Evaluation Screening comments: MDC for diet education s/p CABG x 4 on 07/15 received. Patient Navigator to provide education. Consult RD if complexities with diet education arise.
--- NOTE | 2018-07-16 15:13 | P.PNCV ---
- Note Subjective/Hospital Course: 72-year-old male; patient of primary care physician[facility] Does not have an outside primary care physician. Presented to the emergency room yesterday with complaint of chest pain. He has been having chest pain on and off for the past couple of weeks. Noticed it initially while he was mowing his lawn; had a tightness in his chest, lasted about 10 minutes. He was also short of breath and it has occurred off and on for the past couple of weeks. He was trying to set up appointment with his primary care the [place] and the nurse recommended to come to the emergency room. He denies any prior history of any cardiac disease. His risk factors include age, hypertension. He on admission, mildly elevated troponins ruled in for a non-STEMI. Underwent cardiac catheterization showing a 4-vessel disease with a 70% proximal stenosis in the LAD. The diagonal was 75%, the OM was 80% and the RCA 90%. We were consulted to evaluate for coronary artery bypass grafting. PAST MEDICAL HISTORY: Includes chronic pain syndrome in his lower back with a bulging nerve. He also has had some recent Botox injections in the cervical spine 2 weeks ago, COPD, chronic hepatitis B, essential tremors, hypertension, Lyme disease, gastroesophageal reflux disease, major depressive disorder, and tobacco abuse, PTSD 07/14 remains chest pain free, very concerned about not being to use his medical marijuana while in the hospital since it has helped him get off anxiety meds for his PTSD prn xanax prescribed, also on trazodone Carotid US unremarkable FEV1 >3.0 stable for surgery in am 07/15 Date of procedure: 07/15/18 Anesthesia: JACQUELINEA Surgeon: Kathy Magdaleno MD Operation and Findings: PREPROCEDURE DIAGNOSES 1. Severe Multi Vessel Coronary Artery Disease. 2. Acute Myocardial Infarction (NSTEMI) 3. Hepatitis B 4. Deeply Intramyocardial Coronary Arteries POSTPROCEDURE DIAGNOSES Same SURGICAL PROCEDURE 1. Urgent Off-pump Coronary Artery Bypass Grafting x 4 with Left Internal Mammary Artery (MCELROY) to Left Anterior Descending (LAD), reverse saphenous vein graft to obtuse Marginal branch of the left Circumflex artery, reverse saphenous vein graft to the distal right Coronary artery, reverse saphenous vein graft to the ramus marginalis 2. Ultrasound-Guided Dissection of the LAD extubated after surgery , very combative after surgery and prior to extubation crystalloid 3500cc, 500cc cell saver , EBL 100cc 07/16 alert and oriented, no further confusion on nasal cannula , no pressors , weaned off insulin gtt start BB this pm ok to transfer to stepdown Objective: Vital Signs - 24 hr 07/15/18 15:33 07/15/18 17:04 07/15/18 18:41 Temperature Pulse Rate 67 Respiratory Rate 17 14 14 Blood Pressure Pulse Oximetry 07/15/18 19:00 07/15/18 19:09 07/15/18 20:21 Temperature 97.0 F L 98.6 F Pulse Rate 69 73 Respiratory Rate 20 16 Blood Pressure 132/75 Pulse Oximetry 98 95 07/15/18 20:35 07/15/18 22:09 07/15/18 23:00 Temperature 98.6 F 98.2 F Pulse Rate 83 Respiratory Rate 20 20 Blood Pressure 121/66 Pulse Oximetry 95 07/16/18 03:00 07/16/18 03:30 07/16/18 07:00 Temperature 97.4 F L 98.2 F Pulse Rate 85 74 75 Respiratory Rate 20 14 14 Blood Pressure 118/66 122/60 Pulse Oximetry 97 97 07/16/18 08:13 07/16/18 09:07 07/16/18 09:16 Temperature Pulse Rate 77 Respiratory Rate 14 18 14 Blood Pressure Pulse Oximetry 96 07/16/18 11:00 07/16/18 12:00 07/16/18 13:12 Temperature 98.3 F Pulse Rate 87 87 84 Respiratory Rate 20 16 Blood Pressure 121/57 L Pulse Oximetry 96 96 GENERAL: A&O x 3 SKIN: Warm and dry. prevena dressing to chest, incision intact to left leg HEAD: Normocephalic. EYES: No scleral icterus. No injection or drainage. NECK: Supple, trachea midline. No JVD or lymphadenopathy. CARDIOVASCULAR: Regular rate and rhythm without murmurs, gallops, or rubs. RESPIRATORY: Breath sounds equal bilaterally. No accessory muscle use. chest tube to wall suction, no air leak / drained 690cc/ 12hrs GASTROINTESTINAL: Abdomen soft, non-tender, nondistended. MUSCULOSKELETAL: No cyanosis, or edema. BACK: Nontender without obvious deformity. No CVA tenderness. Labs: Laboratory Results - last 12 hr 07/13/18 07/16/18 07/16/18 15:45 03:07 04:30 WBC 7.4 RBC 3.32 L Hgb 11.2 L D Hct 32.3 L MCV 97.3 MCH 33.8 MCHC 34.8 RDW 12.6 Plt Count 118 L MPV 9.3 Sodium Potassium Chloride Carbon Dioxide Anion Gap BUN Creatinine Estimated GFR POC Glucose 107 Random Glucose Calcium Magnesium MTS Gel Crossmatch See Detail 07/16/18 07/16/18 07/16/18 04:30 05:02 07:13 WBC RBC Hgb Hct MCV MCH MCHC RDW Plt Count MPV Sodium 141 Potassium 3.9 Chloride 108 H Carbon Dioxide 23.8 Anion Gap 9 BUN 10 Creatinine 0.74 Estimated GFR Greater than 89 POC Glucose 109 125 H Random Glucose 112 H Calcium 7.9 L Magnesium 1.8 MTS Gel Crossmatch 07/16/18 07/16/18 08:20 09:48 WBC RBC Hgb Hct MCV MCH MCHC RDW Plt Count MPV Sodium Potassium Chloride Carbon Dioxide Anion Gap BUN Creatinine Estimated GFR POC Glucose 88 113 H Random Glucose Calcium Magnesium MTS Gel Crossmatch Result Diagrams: 07/16/18 04:30 07/16/18 04:30 Telemetry: NSR - Plan (1) S/P coronary artery bypass graft x 4 Plan: ASA, statin , BB OOB ambulate leave chest tubes in CM eval for HHC (3) COPD (chronic obstructive pulmonary disease) Plan: nebs (4) CAD (coronary artery disease), [place] coronary artery Plan: ASA, statin for surgery in am (6) PTSD (post-traumatic stress disorder) Plan: home meds resumed
[2018-07-16] MEDS: Metoprolol Tartrate 25 MG Tablet PO SCH (21:13)
[2018-07-16] MEDS: ALPRAZolam 0.25 MG Tablet PO PRN (21:15)
[2018-07-16] MEDS: Docusate Sodium 100 MG Capsule PO SCH (21:17)
[2018-07-17 05:54] LABS: Baso % (Auto) 0.3 % (0.0-2.0); Eos % (Auto) 0.6 % (0.0-4.0); Hematocrit 31.1 % (39.0-51.0); Hemoglobin 10.8 gm/dL (13.0-17.0); Lymph # (Auto) 1.3 th/mm3 (1.0-4.8); Lymph % (Auto) 19.5 % (9.0-44.0); Mean Corpuscular HGB Conc 34.7 % (32.0-36.0); Mean Corpuscular Hemoglobin 34.1 pg (27.0-34.0); Mean Corpuscular Volume 98.1 fL (80.0-100.0); Mean Platelet Volume 9.4 fL (7.0-11.0); Mono # (Auto) 0.6 th/mm3 (0.0-0.9); Mono % (Auto) 9.1 % (0.0-8.0); Neut # (Auto) 4.7 th/mm3 (1.8-7.7); Neut % (Auto) 70.5 % (16.0-70.0); Platelet Count 124 th/mm3 (150-450); Red Blood Count 3.17 mil/mm3 (4.50-5.90); Red Cell Distribution Width 13.3 % (11.6-17.2); White Blood Count 6.7 th/mm3 (4.0-11.0)
[2018-07-17 06:20] LABS: Anion Gap 3 meq/L (5-15); Blood Urea Nitrogen 12 mg/dL (7-18); Calcium 7.9 mg/dL (8.5-10.1); Carbon Dioxide 30.1 meq/L (21.0-32.0); Chloride 108 meq/L (98-107); Glomerular Filtration Rate Greater Than 89 mL/min (>89); Glucose,Random 99 mg/dL (74-106); Magnesium 2.1 mg/dL (1.5-2.5); Potassium 4.2 meq/L (3.5-5.1); Sodium 141 meq/L (136-145)
--- NOTE | 2018-07-17 07:38 | P.PNIM ---
Subjective Interval history: No acute issues overnight. Patient reports he is doing okay. Pain is controlled. Physical Exam Vital signs: Last Vital Signs Temp 98.2 F 07/17/18 04:00 Pulse 83 07/17/18 04:00 Resp 16 07/17/18 04:00 BP 148/75 H 07/17/18 04:00 Pulse Ox 92 L 07/17/18 04:00 Intake & Output 07/15/18 07/16/18 07/17/18 07/18/18 06:59 06:59 06:59 06:59 Intake Total 2019 6858 / 6858 1004 / 1004 Output Total 3300 / 3300 3410 / 3410 820 / 820 Balance -1280 / -1280 3448 / 3448 184 / 184 Weight 91 kg 93 kg Narrative: GENERAL: Well-developed well-nourished. In no acute distress. CARDIOVASCULAR: Regular rate and rhythm. No murmur appreciated. RESPIRATORY: No accessory muscle use. Clear to auscultation. Breath sounds equal bilaterally. Chest tube in place. MUSCULOSKELETAL: No clubbing or cyanosis. No edema. NEUROLOGICAL: Non focal. Awake and alert. Urinary Catheter Management Indwelling Temp Sensing Catheter: Cath placed during this visit: yes, but has since been removed by the nurse Urethral indwelling: No Insertion date: 07/15/18 Insertion time: 07:40 Removal date: 07/15/18 Removal time: 17:36 Results Labs CBC & Chem 7: 07/17/18 05:00 07/17/18 05:00 Assessment and Plan (1) S/P coronary artery bypass graft x 4: Code(s): Z95.1 - Presence of aortocoronary bypass graft Status: Acute (2) ACS (acute coronary syndrome): Code(s): I24.9 - Acute ischemic heart disease, unspecified Status: Acute (3) COPD (chronic obstructive pulmonary disease): Code(s): J44.9 - Chronic obstructive pulmonary disease, unspecified Status: Chronic (4) CAD (coronary artery disease), [place] coronary artery: Code(s): I25.10 - Atherosclerotic heart disease of [place] coronary artery without angina pectoris Status: Acute (5) NSTEMI (non-ST elevated myocardial infarction): Code(s): I21.4 - Non-ST elevation (NSTEMI) myocardial infarction Status: Acute (6) PTSD (post-traumatic stress disorder): Code(s): F43.10 - Post-traumatic stress disorder, unspecified Status: Chronic Plan 72-year-old male admitted with unstable angina. Heart catheterization revealed severe multi vessel disease. Coronary artery disease: Status post heart cath which showed severe multivessel disease. CT surgery following. -S/P CABG. Postsurgical care per CT surgery - Aspirin, Plavix, Amiodarone, Metoprolol. - Chest tube in place. HTN - -Continue amlodipine 10 mg daily. -Clonidine as needed COPD - stable nebs prn DEPRESSION ANXIETY - took himself off his meds recently, stable CHRONIC PAIN SYNDROME -patient used medical marijuana at home. Per comsec manager, the hospital policy does not allow the use of medical marijuana. Discussed with the patient and he understand the Hospital policy. DVT prophylaxisheparin Progress Note: Quality VTE Deep Vein Thrombosis/Pulmonary Embolism Present on Admission: No _ (1) CAD (coronary artery disease), [place] coronary artery Qualifiers: Associated angina: [place] vs. transplanted heart: (2) COPD (chronic obstructive pulmonary disease) Qualifiers: COPD type: Chronic bronchitis type: Emphysema type:
[2018-07-17] MEDS: Polyethylene Glycol 3350 17 GM Packet PO SCH (08:04)
[2018-07-17] MEDS: Insulin NovoLOG Aspart Correctional Sugar Inj SQ SCH ×5 (08:06→20:51)
[2018-07-17] MEDS: Amiodarone 200 MG Tablet PO SCH ×2 (08:22→20:50)
[2018-07-17] MEDS: Primidone 50 MG Tablet PO SCH ×2 (08:22→20:50)
[2018-07-17] MEDS: Multivitamin/Minerals Therapeutic Tablet PO SCH (08:23)
[2018-07-17] MEDS: traZODone 50 MG Tablet PO SCH (08:24)
[2018-07-17] MEDS: buPROPion 150 MG 12 HR Tablet PO SCH ×2 (08:24→20:51)
[2018-07-17] MEDS: Metoprolol Tartrate 25 MG Tablet PO SCH ×2 (08:27→20:49)
[2018-07-17] MEDS: Senna/Docusate Sodium 8.6/50 MG Tablet PO SCH ×2 (11:42→20:52)
[2018-07-17] MEDS: Ketorolac Inj 30 MG/ML (IVP) Vial IV.PUSH PRN ×3 (11:59→23:00)
--- NOTE | 2018-07-17 12:45 | P.PNCV ---
- Note Subjective/Hospital Course: 72-year-old male; patient of primary care physician, [facility] Does not have an outside primary care physician. Presented to the emergency room yesterday with complaint of chest pain. He has been having chest pain on and off for the past couple of weeks. Noticed it initially while he was mowing his lawn; had a tightness in his chest, lasted about 10 minutes. He was also short of breath and it has occurred off and on for the past couple of weeks. He was trying to set up appointment with his primary care the [place] and the nurse recommended to come to the emergency room. He denies any prior history of any cardiac disease. His risk factors include age, hypertension. He on admission, mildly elevated troponins ruled in for a non-STEMI. Underwent cardiac catheterization showing a 4-vessel disease with a 70% proximal stenosis in the LAD. The diagonal was 75%, the OM was 80% and the RCA 90%. We were consulted to evaluate for coronary artery bypass grafting. PAST MEDICAL HISTORY: Includes chronic pain syndrome in his lower back with a bulging nerve. He also has had some recent Botox injections in the cervical spine 2 weeks ago, COPD, chronic hepatitis B, essential tremors, hypertension, Lyme disease, gastroesophageal reflux disease, major depressive disorder, and tobacco abuse, PTSD 07/14 remains chest pain free, very concerned about not being to use his medical marijuana while in the hospital since it has helped him get off anxiety meds for his PTSD prn xanax prescribed, also on trazodone Carotid US unremarkable FEV1 >3.0 stable for surgery in am 07/15 Date of procedure: 07/15/18 Anesthesia: JACQUELINEA Surgeon: Kathy Magdaleno MD Operation and Findings: PREPROCEDURE DIAGNOSES 1. Severe Multi Vessel Coronary Artery Disease. 2. Acute Myocardial Infarction (NSTEMI) 3. Hepatitis B 4. Deeply Intramyocardial Coronary Arteries POSTPROCEDURE DIAGNOSES Same SURGICAL PROCEDURE 1. Urgent Off-pump Coronary Artery Bypass Grafting x 4 with Left Internal Mammary Artery (MCELROY) to Left Anterior Descending (LAD), reverse saphenous vein graft to obtuse Marginal branch of the left Circumflex artery, reverse saphenous vein graft to the distal right Coronary artery, reverse saphenous vein graft to the ramus marginalis 2. Ultrasound-Guided Dissection of the LAD extubated after surgery , very combative after surgery and prior to extubation crystalloid 3500cc, 500cc cell saver , EBL 100cc 07/16 alert and oriented, no further confusion on nasal cannula , no pressors , weaned off insulin gtt start BB this [facility] 07/17 Doing well. Complaining of incisional discomfort Chest tube still draining. Maintained to suction Reevaluate for chest tube removal in a.m. Ambulate Objective: Vital Signs - 24 hr 07/16/18 13:00 07/16/18 13:12 07/16/18 14:00 Temperature Pulse Rate 92 H 84 94 H Respiratory Rate 16 Blood Pressure Pulse Oximetry 07/16/18 15:00 07/16/18 16:00 07/16/18 18:00 Temperature 98.8 F Pulse Rate 96 H 88 Respiratory Rate 20 16 Blood Pressure 117/69 Pulse Oximetry 95 95 07/16/18 18:08 07/16/18 19:00 07/16/18 20:00 Temperature 98.1 F Pulse Rate 96 H 86 97 H Respiratory Rate 16 Blood Pressure 172/84 H Pulse Oximetry 95 97 07/16/18 20:45 07/16/18 21:00 07/16/18 22:00 Temperature Pulse Rate 88 96 H 80 Respiratory Rate 19 Blood Pressure Pulse Oximetry 07/16/18 23:00 07/16/18 23:45 07/17/18 00:00 Temperature 98.1 F Pulse Rate 88 97 H Respiratory Rate 16 16 Blood Pressure 148/75 H Pulse Oximetry 96 97 07/17/18 01:00 07/17/18 02:00 07/17/18 03:00 Temperature Pulse Rate 82 84 75 Respiratory Rate Blood Pressure Pulse Oximetry 94 L 07/17/18 04:00 07/17/18 05:00 07/17/18 06:00 Temperature 98.2 F Pulse Rate 84 84 86 Respiratory Rate 16 Blood Pressure 148/75 H Pulse Oximetry 92 L 07/17/18 07:00 07/17/18 08:02 Temperature Pulse Rate 87 Respiratory Rate 16 18 Blood Pressure Pulse Oximetry 96 Labs: Laboratory Results - last 12 hr 07/17/18 07/17/18 07/17/18 05:00 05:00 08:08 WBC 6.7 RBC 3.17 L Hgb 10.8 L Hct 31.1 L MCV 98.1 MCH 34.1 H MCHC 34.7 RDW 13.3 Plt Count 124 L MPV 9.4 Neut % (Auto) 70.5 H Lymph % (Auto) 19.5 [place] % (Auto) 9.1 H Eos % (Auto) 0.6 Baso % (Auto) 0.3 Neut # (Auto) 4.7 Lymph # (Auto) 1.3 [place] # (Auto) 0.6 Eos # (Auto) 0.0 Baso # (Auto) 0.0 WBC Differential . Differential Comment Auto diff final Sodium 141 Potassium 4.2 Chloride 108 H Carbon Dioxide 30.1 Anion Gap 3 L BUN 12 Creatinine 0.81 Estimated GFR Greater than 89 POC Glucose 118 H Random Glucose 99 Calcium 7.9 L Magnesium 2.1 Result Diagrams: 07/17/18 05:00 07/17/18 05:00 - Plan (1) S/P coronary artery bypass graft x 4 Plan: ASA, statin , BB OOB ambulate leave chest tubes in CM eval for HHC (3) COPD (chronic obstructive pulmonary disease) Plan: nebs (4) CAD (coronary artery disease), [place] coronary artery Plan: ASA, statin for surgery in am (6) PTSD (post-traumatic stress disorder) Plan: home meds resumed
[2018-07-17] MEDS: Docusate Sodium 100 MG Capsule PO SCH ×2 (13:04→20:51)
[2018-07-18] MEDS: Ketorolac Inj 30 MG/ML (IVP) Vial IV.PUSH PRN (06:22)
[2018-07-18] MEDS: Senna/Docusate Sodium 8.6/50 MG Tablet PO SCH ×2 (09:27→20:50)
[2018-07-18] MEDS: Primidone 50 MG Tablet PO SCH ×2 (09:28→20:49)
[2018-07-18] MEDS: buPROPion 150 MG 12 HR Tablet PO SCH ×2 (09:28→20:50)
[2018-07-18] MEDS: Docusate Sodium 100 MG Capsule PO SCH ×2 (09:28→20:49)
[2018-07-18] MEDS: Amiodarone 200 MG Tablet PO SCH ×2 (09:28→20:49)
[2018-07-18] MEDS: Multivitamin/Minerals Therapeutic Tablet PO SCH (09:28)
[2018-07-18] MEDS: traZODone 50 MG Tablet PO SCH (09:28)
[2018-07-18] MEDS: Insulin NovoLOG Aspart Correctional Sugar Inj SQ SCH ×4 (09:30→21:26)
[2018-07-18] MEDS: Metoprolol Tartrate 25 MG Tablet PO SCH ×2 (09:31→20:49)
[2018-07-18] MEDS: Polyethylene Glycol 3350 17 GM Packet PO SCH (09:31)
--- NOTE | 2018-07-18 09:39 | P.PNCV ---
- Note Subjective/Hospital Course: 72-year-old male; patient of primary care [facility] Does not have an outside primary care physician. Presented to the emergency room yesterday with complaint of chest pain. He has been having chest pain on and off for the past couple of weeks. Noticed it initially while he was mowing his lawn; had a tightness in his chest, lasted about 10 minutes. He was also short of breath and it has occurred off and on for the past couple of weeks. He was trying to set up appointment with his primary care the [place] and the nurse recommended to come to the emergency room. He denies any prior history of any cardiac disease. His risk factors include age, hypertension. He on admission, mildly elevated troponins ruled in for a non-STEMI. Underwent cardiac catheterization showing a 4-vessel disease with a 70% proximal stenosis in the LAD. The diagonal was 75%, the OM was 80% and the RCA 90%. We were consulted to evaluate for coronary artery bypass grafting. PAST MEDICAL HISTORY: Includes chronic pain syndrome in his lower back with a bulging nerve. He also has had some recent Botox injections in the cervical spine 2 weeks ago, COPD, chronic hepatitis B, essential tremors, hypertension, Lyme disease, gastroesophageal reflux disease, major depressive disorder, and tobacco abuse, PTSD 07/14 remains chest pain free, very concerned about not being to use his medical marijuana while in the hospital since it has helped him get off anxiety meds for his PTSD prn xanax prescribed, also on trazodone Carotid US unremarkable FEV1 >3.0 stable for surgery in am 07/15 Date of procedure: 07/15/18 Anesthesia: JACQUELINEA Surgeon: Kathy Magdaleno MD Operation and Findings: PREPROCEDURE DIAGNOSES 1. Severe Multi Vessel Coronary Artery Disease. 2. Acute Myocardial Infarction (NSTEMI) 3. Hepatitis B 4. Deeply Intramyocardial Coronary Arteries POSTPROCEDURE DIAGNOSES Same SURGICAL PROCEDURE 1. Urgent Off-pump Coronary Artery Bypass Grafting x 4 with Left Internal Mammary Artery (MCELROY) to Left Anterior Descending (LAD), reverse saphenous vein graft to obtuse Marginal branch of the left Circumflex artery, reverse saphenous vein graft to the distal right Coronary artery, reverse saphenous vein graft to the ramus marginalis 2. Ultrasound-Guided Dissection of the LAD extubated after surgery , very combative after surgery and prior to extubation crystalloid 3500cc, 500cc cell saver , EBL 100cc 07/16 alert and oriented, no further confusion on nasal cannula , no pressors , weaned off insulin gtt start BB this pm ok to transfer to stepdown 07/17 Doing well. Complaining of incisional discomfort Chest tube still draining. Maintained to suction Reevaluate for chest tube removal in a.m. Ambulate 07/18 Clinically and hemodynamically stable DC chest tubes today Discharge planning Objective: Vital Signs - 24 hr 07/17/18 10:00 07/17/18 11:00 07/17/18 12:00 Temperature 98.5 F Pulse Rate 74 75 84 Respiratory Rate 17 Blood Pressure 128/73 Pulse Oximetry 95 96 07/17/18 13:00 07/17/18 13:03 07/17/18 13:36 Temperature Pulse Rate 84 84 Respiratory Rate 16 18 Blood Pressure Pulse Oximetry 07/17/18 14:00 07/17/18 15:20 07/17/18 15:27 Temperature Pulse Rate 88 84 Respiratory Rate Blood Pressure Pulse Oximetry 95 07/17/18 16:00 07/17/18 16:42 07/17/18 17:00 Temperature 98.2 F Pulse Rate 84 89 86 Respiratory Rate 16 Blood Pressure 155/78 H Pulse Oximetry 97 07/17/18 18:36 07/17/18 19:30 07/17/18 20:00 Temperature 98.6 F Pulse Rate 89 88 80 Respiratory Rate 16 Blood Pressure 141/73 H Pulse Oximetry 95 07/17/18 21:00 07/17/18 21:04 07/17/18 22:00 Temperature Pulse Rate 90 82 80 Respiratory Rate 16 Blood Pressure Pulse Oximetry 94 L 07/17/18 23:00 07/18/18 00:00 07/18/18 01:08 Temperature 98.6 F Pulse Rate 79 79 80 Respiratory Rate 15 Blood Pressure 143/66 H Pulse Oximetry 95 95 07/18/18 02:00 07/18/18 03:24 07/18/18 04:00 Temperature 98.6 F Pulse Rate 78 79 87 Respiratory Rate 15 Blood Pressure 157/84 H Pulse Oximetry 95 07/18/18 04:50 07/18/18 05:00 07/18/18 06:00 Temperature Pulse Rate 83 83 Respiratory Rate Blood Pressure Pulse Oximetry 95 07/18/18 08:14 Temperature Pulse Rate 81 Respiratory Rate 16 Blood Pressure Pulse Oximetry 94 L Labs: Laboratory Results - last 12 hr 07/18/18 07:52 POC Glucose 111 H Result Diagrams: 07/17/18 05:00 07/17/18 05:00 - Plan (1) S/P coronary artery bypass graft x 4 Plan: ASA, statin , BB OOB ambulate leave chest tubes in CM eval for HHC (3) COPD (chronic obstructive pulmonary disease) Plan: nebs (4) CAD (coronary artery disease), [place] coronary artery Plan: ASA, statin for surgery in am (6) PTSD (post-traumatic stress disorder) Plan: home meds resumed
--- NOTE | 2018-07-18 14:36 | P.PNIM ---
Subjective Interval history: Patient reports he is feeling well today. Pain is controlled. Chest tube is out. Physical Exam Vital signs: Last Vital Signs Temp 98.5 F 07/18/18 12:00 Pulse 75 07/18/18 13:00 Resp 16 07/18/18 12:00 BP 146/83 H 07/18/18 12:00 Pulse Ox 95 07/18/18 12:55 Intake & Output 07/16/18 07/17/18 07/18/18 07/19/18 06:59 06:59 06:59 06:59 Intake Total 6858 / 6858 1484 / 1484 1180 / 1180 Output Total 3410 / 3410 1870 / 1870 1725 / 1725 Balance 3448 / 3448 -386 / -386 -545 / -545 Weight 93 kg 94 kg Narrative: GENERAL: Well-developed well-nourished. In no acute distress. CARDIOVASCULAR: Regular rate and rhythm. No murmur appreciated. RESPIRATORY: No accessory muscle use. Clear to auscultation. Breath sounds equal bilaterally. MUSCULOSKELETAL: No clubbing or cyanosis. No edema. NEUROLOGICAL: Non focal. Awake and alert. Urinary Catheter Management Indwelling Temp Sensing Catheter: Cath placed during this visit: yes, but has since been removed by the nurse Urethral indwelling: No Insertion date: 07/15/18 Insertion time: 07:40 Removal date: 07/15/18 Removal time: 17:36 Results Labs CBC & Chem 7: 07/17/18 05:00 07/17/18 05:00 Assessment and Plan (1) S/P coronary artery bypass graft x 4: Code(s): Z95.1 - Presence of aortocoronary bypass graft Status: Acute (2) ACS (acute coronary syndrome): Code(s): I24.9 - Acute ischemic heart disease, unspecified Status: Acute (3) COPD (chronic obstructive pulmonary disease): Code(s): J44.9 - Chronic obstructive pulmonary disease, unspecified Status: Chronic (4) CAD (coronary artery disease), [place] coronary artery: Code(s): I25.10 - Atherosclerotic heart disease of [place] coronary artery without angina pectoris Status: Acute (5) NSTEMI (non-ST elevated myocardial infarction): Code(s): I21.4 - Non-ST elevation (NSTEMI) myocardial infarction Status: Acute (6) PTSD (post-traumatic stress disorder): Code(s): F43.10 - Post-traumatic stress disorder, unspecified Status: Chronic Plan 72-year-old male admitted with unstable angina. Heart catheterization revealed severe multi vessel disease. Coronary artery disease: Status post heart cath which showed severe multivessel disease. CT surgery following. -S/P CABG. Postsurgical care per CT surgery - Aspirin, Plavix, Amiodarone, Metoprolol. - Chest tube removed today HTN -Continue amlodipine 10 mg daily. -Clonidine as needed COPD - stable nebs prn DEPRESSION ANXIETY - Took himself off his meds recently, stable CHRONIC PAIN SYNDROME -Patient used medical marijuana at home. Per recruitment advertising manager, the hospital policy does not allow the use of medical marijuana. Discussed with the patient and he understand the Hospital policy. DVT prophylaxisheparin DC planning to home with home health tomorrow Progress Note: Quality VTE Deep Vein Thrombosis/Pulmonary Embolism Present on Admission: No _ (1) COPD (chronic obstructive pulmonary disease) Qualifiers: COPD type: Chronic bronchitis type: Emphysema type: (2) CAD (coronary artery disease), [place] coronary artery Qualifiers: [place] vs. transplanted heart: Associated angina:
[2018-07-18] MEDS: ALPRAZolam 0.25 MG Tablet PO PRN (20:49)
[2018-07-19 05:13] LABS: Hematocrit 32.8 % (39.0-51.0); Hemoglobin 11.2 gm/dL (13.0-17.0); Mean Corpuscular HGB Conc 34.3 % (32.0-36.0); Mean Corpuscular Hemoglobin 33.5 pg (27.0-34.0); Mean Corpuscular Volume 97.7 fL (80.0-100.0); Platelet Count 181 th/mm3 (150-450); Red Blood Count 3.35 mil/mm3 (4.50-5.90)
[2018-07-19 05:22] LABS: Calcium 8.3 mg/dL (8.5-10.1); Carbon Dioxide 27.3 meq/L (21.0-32.0); Potassium 3.9 meq/L (3.5-5.1)
[2018-07-19] MEDS: Insulin NovoLOG Aspart Correctional Sugar Inj SQ SCH ×4 (08:49→20:49)
[2018-07-19] MEDS: Multivitamin/Minerals Therapeutic Tablet PO SCH (09:36)
[2018-07-19] MEDS: Metoprolol Tartrate 25 MG Tablet PO SCH ×2 (09:37→20:45)
[2018-07-19] MEDS: traZODone 50 MG Tablet PO SCH (09:38)
[2018-07-19] MEDS: Amiodarone 200 MG Tablet PO SCH ×2 (09:38→20:46)
[2018-07-19] MEDS: Primidone 50 MG Tablet PO SCH ×2 (09:48→20:46)
[2018-07-19] MEDS: Polyethylene Glycol 3350 17 GM Packet PO SCH (09:48)
[2018-07-19] MEDS: buPROPion 150 MG 12 HR Tablet PO SCH ×2 (09:48→20:45)
[2018-07-19] MEDS: Senna/Docusate Sodium 8.6/50 MG Tablet PO SCH ×2 (09:48→20:46)
[2018-07-19] MEDS: Docusate Sodium 100 MG Capsule PO SCH ×2 (09:48→20:46)
--- NOTE | 2018-07-19 10:10 | P.DS ---
DS: Providers Date of admission: 07/12/18 18:22 Primary care physician: [facility] Consults: 07/12/18 18:04 Consult to Cardiology Routine Consulting Provider: Adalberto Tripathi Does the patient have a Nutrition Instructor who follows them?: No Preferred Hand Thermal Cutter:: Adalberto Tripathi Reason for Consultation: Acute coronary syndrome, already discussed with via phone, please do not call Notified:: Service Spoke with:: VANITA Date Notified:: 07/12/18 Time Notified:: 18:10 Ordering Provider: ALISHA 07/13/18 11:52 Consult to Cardiothoracic Surgery Routine Consulting Provider: Katty Laboy Reason for Consultation: CABG Notified:: Physician Spoke with:: Dr. Laboy Date Notified:: 07/13/18 Time Notified:: 11:57 Ordering Provider: MANUEL Brief History from admission: HPI as documented by the admitting physician: 72-year-old gentleman presents with complaints of midsternal left-sided chest pain and tightness has been intermittent for the past 2 weeks. Onset is with exertion he has to stop and catch his breath and feels a tightness across his left chest moderate severe associated with shortness of breath that improves with slowing down and resting. He denies radiation, diaphoresis, nausea vomiting or palpitations. He was trying to set up outpatient appointment with his primary care physician when the nurse recommended he go to the emergency room. He denies any cardiac history. He states he recently stopped all his pain chronic pain medications and his antidepressant because he started vaping medical marijuana. He believes that his recent Botox injection in the cervical spine 2 weeks ago that he had done for essential tremor caused worsening shortness of breath and numbness and lower 70 weakness. He also feels some shortness of breath may be related to the fact that he switch to vaping and was using it too much. Breathing is better since he cut back. Patient update on day of discharge: Patient reports he is feeling okay today. No shortness of breath or chest pressure. He is anxious about going home. All of his questions were answered. DS: Diagnosis Discharge Diagnosis (1) S/P coronary artery bypass graft x 4: Status: Acute (2) ACS (acute coronary syndrome): Status: Acute (3) COPD (chronic obstructive pulmonary disease): Status: Chronic (4) CAD (coronary artery disease), [place] coronary artery: Status: Acute (5) NSTEMI (non-ST elevated myocardial infarction): Status: Acute (6) PTSD (post-traumatic stress disorder): Status: Chronic DS: Summary 72-year-old male admitted with unstable angina. Heart catheterization revealed severe multi vessel disease. The patient underwent CABG. He did well postoperatively. He is discharged in good condition on medical regimen recommended by cardiology. HTN -Continue amlodipine 10 mg daily. COPD - stable DEPRESSION ANXIETY -patient may continue on anxiety medications. He is advised to follow-up outpatient with PCP or his psychiatrist. CHRONIC PAIN SYNDROME -Patient used medical marijuana at home. Time Spent with Patient Total time spent providing and/or coordinating discharge services: Greater than 30 minutes Quality: VTE Deep Vein Thrombosis/Pulmonary Embolism Present on Admission: No Exam Narrative Exam Narrative: GENERAL: This is a well-nourished, well-developed patient, in no apparent distress. CARDIOVASCULAR: Normal rate and regular rhythm without murmurs, gallops, or rubs. RESPIRATORY: Good respiratory efforts. Breath sounds equal and clear to auscultation bilaterally. GASTROINTESTINAL: Abdomen soft, non-tender, non-distended. Normal active bowel sounds MUSCULOSKELETAL: Extremities without cyanosis, or edema. NEURO: Alert & Oriented x4 to person, place, time, situation. Moves all ext x4 PSYCH: Appropriate mood and affect. Results Labs on day of discharge: Labs from last 24 hours 07/19/18 07/19/18 07/19/18 07:34 04:45 04:45 WBC 6.0 RBC 3.35 L Hgb 11.2 L Hct 32.8 L MCV 97.7 MCH 33.5 MCHC 34.3 RDW 13.0 Plt Count 181 D MPV 9.0 Sodium 142 Potassium 3.9 Chloride 107 Carbon Dioxide 27.3 Anion Gap 8 BUN 8 Creatinine 0.90 Estimated GFR 83 L POC Glucose 107 Random Glucose 106 Calcium 8.3 L 07/18/18 07/18/18 07/18/18 20:45 16:56 12:04 WBC RBC Hgb Hct MCV MCH MCHC RDW Plt Count MPV Sodium Potassium Chloride Carbon Dioxide Anion Gap BUN Creatinine Estimated GFR POC Glucose 112 H 114 H 122 H Random Glucose Calcium Impressions ITS Impressions Carotid Doppler Study 07/13/18 14:16 CONCLUSION: 1. Right Internal Carotid Artery: Moderate calcified atherosclerotic plaquing in the right carotid bulb and internal with no sonographic or Doppler findings of a hemodynamically significant stenosis 2. Left Internal Carotid Artery: Very mild atherosclerotic plaquing in the left internal carotid with no sonographic or Doppler findings of a hemodynamically significant stenosis. 3. Antegrade flow in both vertebral arteries Lower Extremity Ultrasound 07/13/18 14:16 CONCLUSION: 1. Venous mapping study as described. Venous Doppler Study 07/13/18 14:16 CONCLUSION: 1. The study is negative for bilateral lower extremity deep venous thrombosis. Chest X-Ray 07/16/18 05:00 CONCLUSION: Median sternotomy wires and tube in good position. Lungs remain grossly clear Discharge Plan Discharge Disposition Patient Disposition: W/Home Health Service Discharge Condition Condition: Stable Discharge Order Discharge Orders: Discharge Order (Routine); Ordered 07/19/18 Ordered By: Zoie García Physicians Team ED Provider: Del Mcguire Primary Care Provider: [facility] '[facility] Attending Provider: Zoie García Other Providers: Adalberto Tripathi ; Katty Laboy Rxs /Orders / Referrals /Forms Prescriptions: New amiodarone 200 mg Tablet 200 mg PO Q12HR Qty: 28 RF: 0 clopidogrel [Plavix] 75 mg Tablet 75 mg PO DAILY Qty: 30 RF: 0 metoprolol tartrate 25 mg Tablet 12.5 mg PO BID Qty: 60 RF: 0 hydrocodone-acetaminophen 5-325 mg Tablet 1 tab PO Q4H PRN (Reason: Pain Scale 1 To 5) Qty: 40 RF: 0 docusate sodium [DOK] 100 mg Capsule 100 mg PO BID Qty: 30 RF: 0 aspirin 81 mg Tablet,Chewable 81 mg PO DAILY Qty: 100 RF: 2 blznohlk-yupk-IX-calcium-mins [Thera M Plus (ferrous fumarat)] 9 mg iron-400 mcg Tablet 1 tab PO DAILY Qty: 30 RF: 2 Continue methocarbamol 500 mg Tablet 750 mg PO BID PRN (Reason: Pain) RF: 0 primidone 50 mg Tablet 50 mg PO Q12H RF: 0 bupropion HCl 150 mg Tablet Sustained-Release 12 Hr 150 mg PO BID RF: 0 trazodone 50 mg Tablet 50 mg PO DAILY RF: 0 omeprazole 40 mg Capsule,Delayed Release(Dr/Ec) 40 mg PO DAILY RF: 0 tamsulosin 0.4 mg Capsule 0.4 mg PO DAILY RF: 0 amlodipine 5 mg Tablet 5 mg PO DAILY RF: 0 cholecalciferol (vitamin D3) [Vitamin D3] 1,000 unit Capsule 1,000 unit PO DAILY RF: 0 Discontinued naproxen 375 mg Tablet 750 mg PO BID RF: 0 Referrals: [facility]ician 's [Primary Care Provider] - See Instructions ( Clinic will call you to book the appointment. Please be sure to be seen within [ 2 weeks of discharge].) Rosie Carlos [ADVANCE RN PRACTITIONER] - See Instructions ( Your appointment has been scheduled for [08/10/18] at [10:45 am] If you cannot make this appointment, please call the office to reschedule ) Adalberto Tripathi MD [Physician] - See Instructions ( Your appointment has been scheduled for [08/12/18] at [2:00 pm] If you cannot make this appointment, please call the office to reschedule ) Discharge Instructions Patient Printed Instructions: Metoprolol (By mouth), Hydrocodone/Acetaminophen (By mouth), Amiodarone (By mouth), Chest Pain (ED), Heart Healthy Diet (DC), Acute Wound Care (DC), Wound Healing and Your Diet (DC), Heart Catheterization ( DC), CABG (Coronary Artery Bypass Graft) (DC), Exercise Safety (GEN) Additional Instructions: PREVENA Single Use Negative Wound Therapy System Caregiver Instruction Sheet 1. A Prevena dressing system was applied to the chest incision during surgery , to promote wound healing. It works via a suction device (negative pressure wound therapy) to remove low to moderate levels of exudate (drainage) and infectious materials. We recommend that the device stay in place for up to seven days, from day of surgery. 2. Day of Surgery___/` Day of Removal ___07/22/18 3. The dressing should only be removed by a health care companion. Please arrange removal of device to coincide with Home Health visit and or with Nursing staff at Rehab 4. If skin reddening or irritation of skin occurs, or excessive drainage, please notify the Cardiovascular Surgeons office at [phone]. 5. Light showering is permissible; however the pump should be disconnected and placed in safe location, where it will not get wet. The dressing should not be exposed to direct spray or submerged in water. No bath tub / shower only. Ensure the end of the tubing attached to the dressing is facing down so that water does not enter the top of the tube. 6. To remove Prevena dressing: press purple button to turn off device / remove the suction. Then disconnect the tubing from the pump. The fixation strips should be stretched away from the skin and the dressing lifted at one corner and peeled back until it has been fully removed. 7. After removal, it is ok to shower daily using liquid dial soap and clean wash cloth, rinse and pat dry, and leave incision open to air dry. For any concerns regarding Prevena dressing, and or wounds, please contact Shanta Parada, patient navigator at [phone] or notify the Cardiovascular Surgeons office at [phone]. Incentive spirometry Q1 hr x 10, while awake, also use acapella device hourly whole awake Sternal Breast Bone Precautions: NO pushing or pulling, ( pt must use sternal pillow to support chest with all activities and with coughing ( takes up to 3 months breast bone to heal ) Daily incision care: ok to shower daily, no tub bath. Wash all incisions with liquid dial soap, clean wash cloth to each site, rinse and pat dry. Observe for any signs of infection, such as drainage which is dark yellow, morgan, green or foul smelling. Immediately report to the surgeon any drainage from the chest incision, or legs, and for any abnormal drainage from the chest tube sites. Notify surgeon if any temp >101.5 degrees F. When specialty dressing removed/ or if you do not have one, continue to shower daily as above, then rinse and pat incision dry and paint with betadine daily x 5 days. Allow steri strips to fall off if you have any. Avoid lotions, creams, salves, oils, etc. for the first month Please see attached forms for additional instructions regarding post Open Heart specialty wound vacuum dressings. [place] or Prevena , Dressing to be removed by Nursing staff on __07/22/ F/U appointment: as per DC instructions: PCP in 2 weeks, CV surgeon 2 weeks, Nutrition Instructor 3-4 weeks For any questions regarding incisions/ dressing / meds / post op care or above Symptoms, Thursday 8am-5pm Heart & Vascular Surgery Office ( Dr. Magdaleno & Dr. Laboy), After Hours / Nights (5pm -8am) Weekends and Holidays Please call [facility] Cardiac Intermediate Care Unit (C[facility]) Charge Nurse Status ED Status: Left Department
--- NOTE | 2018-07-19 10:22 | P.PNCV ---
- Note Subjective/Hospital Course: 72-year-old male; patient of primary care [facility] Does not have an outside primary care physician. Presented to the emergency room yesterday with complaint of chest pain. He has been having chest pain on and off for the past couple of weeks. Noticed it initially while he was mowing his lawn; had a tightness in his chest, lasted about 10 minutes. He was also short of breath and it has occurred off and on for the past couple of weeks. He was trying to set up appointment with his primary care the [place] and the nurse recommended to come to the emergency room. He denies any prior history of any cardiac disease. His risk factors include age, hypertension. He on admission, mildly elevated troponins ruled in for a non-STEMI. Underwent cardiac catheterization showing a 4-vessel disease with a 70% proximal stenosis in the LAD. The diagonal was 75%, the OM was 80% and the RCA 90%. We were consulted to evaluate for coronary artery bypass grafting. PAST MEDICAL HISTORY: Includes chronic pain syndrome in his lower back with a bulging nerve. He also has had some recent Botox injections in the cervical spine 2 weeks ago, COPD, chronic hepatitis B, essential tremors, hypertension, Lyme disease, gastroesophageal reflux disease, major depressive disorder, and tobacco abuse, PTSD 07/14 remains chest pain free, very concerned about not being to use his medical marijuana while in the hospital since it has helped him get off anxiety meds for his PTSD prn xanax prescribed, also on trazodone Carotid US unremarkable FEV1 >3.0 stable for surgery in am 07/15 Date of procedure: 07/15/18 Anesthesia: JACQUELINEA Surgeon: Kathy Magdaleno MD Operation and Findings: PREPROCEDURE DIAGNOSES 1. Severe Multi Vessel Coronary Artery Disease. 2. Acute Myocardial Infarction (NSTEMI) 3. Hepatitis B 4. Deeply Intramyocardial Coronary Arteries POSTPROCEDURE DIAGNOSES Same SURGICAL PROCEDURE 1. Urgent Off-pump Coronary Artery Bypass Grafting x 4 with Left Internal Mammary Artery (MCELROY) to Left Anterior Descending (LAD), reverse saphenous vein graft to obtuse Marginal branch of the left Circumflex artery, reverse saphenous vein graft to the distal right Coronary artery, reverse saphenous vein graft to the ramus marginalis 2. Ultrasound-Guided Dissection of the LAD extubated after surgery , very combative after surgery and prior to extubation crystalloid 3500cc, 500cc cell saver , EBL 100cc 07/16 alert and oriented, no further confusion on nasal cannula , no pressors , weaned off insulin gtt start BB this pm ok to transfer to stepdown 07/17 Doing well. Complaining of incisional discomfort Chest tube still draining. Maintained to suction Reevaluate for chest tube removal in a.m. Ambulate 07/18 Clinically and hemodynamically stable DC chest tubes today Discharge planning 07/19 pt on room air, stable for discharge Objective: Vital Signs - 24 hr 07/18/18 11:00 07/18/18 12:00 07/18/18 12:55 Temperature 98.5 F Pulse Rate 84 72 Respiratory Rate 16 Blood Pressure 146/83 H Pulse Oximetry 95 95 07/18/18 13:00 07/18/18 14:00 07/18/18 15:00 Temperature Pulse Rate 75 74 71 Respiratory Rate Blood Pressure Pulse Oximetry 07/18/18 15:07 07/18/18 16:00 07/18/18 17:00 Temperature 98.5 F Pulse Rate 72 82 Respiratory Rate 16 Blood Pressure 143/63 H Pulse Oximetry 94 L 93 L 07/18/18 18:00 07/18/18 19:00 07/18/18 20:00 Temperature 98.3 F Pulse Rate 96 H 82 80 Respiratory Rate 18 Blood Pressure 125/79 Pulse Oximetry 98 99 07/18/18 21:00 07/18/18 22:00 07/18/18 23:00 Temperature Pulse Rate 80 77 81 Respiratory Rate Blood Pressure Pulse Oximetry 95 07/19/18 00:00 07/19/18 00:59 07/19/18 01:00 Temperature 98.6 F Pulse Rate 77 71 Respiratory Rate 17 17 Blood Pressure 142/70 H Pulse Oximetry 95 07/19/18 02:00 07/19/18 03:00 07/19/18 04:00 Temperature 98.6 F Pulse Rate 74 72 75 Respiratory Rate 17 Blood Pressure 149/85 H Pulse Oximetry 92 L 92 L 07/19/18 05:00 07/19/18 06:00 07/19/18 07:00 Temperature Pulse Rate 76 75 Respiratory Rate Blood Pressure Pulse Oximetry 95 07/19/18 08:00 Temperature 97.7 F Pulse Rate 77 Respiratory Rate 18 Blood Pressure 157/83 H Pulse Oximetry 95 GENERAL: A&O x 3 SKIN: Warm and dry. prevena dressing to chest , left leg incision intact and well approximated HEAD: Normocephalic. EYES: No scleral icterus. No injection or drainage. NECK: Supple, trachea midline. No JVD or lymphadenopathy. CARDIOVASCULAR: Regular rate and rhythm without murmurs, gallops, or rubs. RESPIRATORY: Breath sounds equal bilaterally. No accessory muscle use. GASTROINTESTINAL: Abdomen soft, non-tender, nondistended. MUSCULOSKELETAL: No cyanosis, or edema. BACK: Nontender without obvious deformity. No CVA tenderness. Labs: Laboratory Results - last 12 hr 07/19/18 07/19/18 07/19/18 04:45 04:45 07:34 WBC 6.0 RBC 3.35 L Hgb 11.2 L Hct 32.8 L MCV 97.7 MCH 33.5 MCHC 34.3 RDW 13.0 Plt Count 181 D MPV 9.0 Sodium 142 Potassium 3.9 Chloride 107 Carbon Dioxide 27.3 Anion Gap 8 BUN 8 Creatinine 0.90 Estimated GFR 83 L POC Glucose 107 Random Glucose 106 Calcium 8.3 L Result Diagrams: 07/19/18 04:45 07/19/18 04:45 Telemetry: NSR - Plan (1) S/P coronary artery bypass graft x 4 Plan: ASA, statin , BB , amiodarone OOB ambulate stable for discharge (3) COPD (chronic obstructive pulmonary disease) Plan: nebs (4) CAD (coronary artery disease), [place] coronary artery Plan: ASA, statin for surgery in am (6) PTSD (post-traumatic stress disorder) Plan: home meds resumed
[2018-07-19] MEDS: ALPRAZolam 0.25 MG Tablet PO PRN (19:39)
[2018-07-20] MEDS: Primidone 50 MG Tablet PO SCH (08:40)
[2018-07-20] MEDS: buPROPion 150 MG 12 HR Tablet PO SCH (08:41)
[2018-07-20] MEDS: Metoprolol Tartrate 25 MG Tablet PO SCH (08:41)
[2018-07-20] MEDS: Polyethylene Glycol 3350 17 GM Packet PO SCH (08:41)
[2018-07-20] MEDS: Amiodarone 200 MG Tablet PO SCH (08:41)
[2018-07-20] MEDS: Multivitamin/Minerals Therapeutic Tablet PO SCH (08:41)
[2018-07-20] MEDS: Senna/Docusate Sodium 8.6/50 MG Tablet PO SCH (08:41)
[2018-07-20] MEDS: traZODone 50 MG Tablet PO SCH (08:41)
[2018-07-20] MEDS: Docusate Sodium 100 MG Capsule PO SCH (08:42)
--- NOTE | 2018-07-20 10:44 | P.PNCV ---
- Note Subjective/Hospital Course: 72-year-old male; patient of primary care physician, [facility] Does not have an outside primary care physician. Presented to the emergency room yesterday with complaint of chest pain. He has been having chest pain on and off for the past couple of weeks. Noticed it initially while he was mowing his lawn; had a tightness in his chest, lasted about 10 minutes. He was also short of breath and it has occurred off and on for the past couple of weeks. He was trying to set up appointment with his primary care the [place] and the nurse recommended to come to the emergency room. He denies any prior history of any cardiac disease. His risk factors include age, hypertension. He on admission, mildly elevated troponins ruled in for a non-STEMI. Underwent cardiac catheterization showing a 4-vessel disease with a 70% proximal stenosis in the LAD. The diagonal was 75%, the OM was 80% and the RCA 90%. We were consulted to evaluate for coronary artery bypass grafting. PAST MEDICAL HISTORY: Includes chronic pain syndrome in his lower back with a bulging nerve. He also has had some recent Botox injections in the cervical spine 2 weeks ago, COPD, chronic hepatitis B, essential tremors, hypertension, Lyme disease, gastroesophageal reflux disease, major depressive disorder, and tobacco abuse, PTSD 07/14 remains chest pain free, very concerned about not being to use his medical marijuana while in the hospital since it has helped him get off anxiety meds for his PTSD prn xanax prescribed, also on trazodone Carotid US unremarkable FEV1 >3.0 stable for surgery in am 07/15 Date of procedure: 07/15/18 Anesthesia: JACQUELINEA Surgeon: Kathy Magdaleno MD Operation and Findings: PREPROCEDURE DIAGNOSES 1. Severe Multi Vessel Coronary Artery Disease. 2. Acute Myocardial Infarction (NSTEMI) 3. Hepatitis B 4. Deeply Intramyocardial Coronary Arteries POSTPROCEDURE DIAGNOSES Same SURGICAL PROCEDURE 1. Urgent Off-pump Coronary Artery Bypass Grafting x 4 with Left Internal Mammary Artery (MCELROY) to Left Anterior Descending (LAD), reverse saphenous vein graft to obtuse Marginal branch of the left Circumflex artery, reverse saphenous vein graft to the distal right Coronary artery, reverse saphenous vein graft to the ramus marginalis 2. Ultrasound-Guided Dissection of the LAD extubated after surgery , very combative after surgery and prior to extubation crystalloid 3500cc, 500cc cell saver , EBL 100cc 07/16 alert and oriented, no further confusion on nasal cannula , no pressors , weaned off insulin gtt start BB this pm ok to transfer to stepdown 07/17 Doing well. Complaining of incisional discomfort Chest tube still draining. Maintained to suction Reevaluate for chest tube removal in a.m. Ambulate 07/18 Clinically and hemodynamically stable DC chest tubes today Discharge planning 07/19 pt on room air, stable for discharge 07/20 Doing well Clinically and he medically stable Okay to discharge today Objective: Vital Signs - 24 hr 07/19/18 11:00 07/19/18 12:00 07/19/18 13:00 Temperature 97.7 F Pulse Rate 73 74 75 Respiratory Rate 18 Blood Pressure 139/69 Pulse Oximetry 94 L 95 07/19/18 14:00 07/19/18 15:00 07/19/18 16:00 Temperature 97.7 F Pulse Rate 72 76 78 Respiratory Rate 18 Blood Pressure 149/87 H Pulse Oximetry 96 95 07/19/18 16:39 07/19/18 17:00 07/19/18 18:00 Temperature Pulse Rate 81 75 Respiratory Rate 18 Blood Pressure Pulse Oximetry 07/19/18 19:00 07/19/18 20:00 07/19/18 20:44 Temperature 98.5 F Pulse Rate 80 79 Respiratory Rate 17 17 Blood Pressure 167/81 H Pulse Oximetry 95 95 07/19/18 21:00 07/19/18 22:00 07/19/18 23:00 Temperature Pulse Rate 80 81 70 Respiratory Rate Blood Pressure Pulse Oximetry 95 07/20/18 00:00 07/20/18 03:00 07/20/18 03:06 Temperature 98.4 F 98.5 F Pulse Rate 77 74 74 Respiratory Rate 17 17 Blood Pressure 154/76 H 150/78 H Pulse Oximetry 95 94 L 94 L 07/20/18 04:00 07/20/18 05:00 07/20/18 05:15 Temperature Pulse Rate 72 73 76 Respiratory Rate Blood Pressure Pulse Oximetry 07/20/18 07:00 07/20/18 08:00 07/20/18 09:00 Temperature 98.8 F Pulse Rate 77 80 83 Respiratory Rate 18 Blood Pressure 177/97 H Pulse Oximetry 94 L 94 L Labs: Laboratory Results - last 12 hr 07/20/18 08:36 POC Glucose 151 H Result Diagrams: 07/19/18 04:45 07/19/18 04:45 - Plan (1) S/P coronary artery bypass graft x 4 Plan: ASA, statin , BB , amiodarone OOB ambulate stable for discharge (3) COPD (chronic obstructive pulmonary disease) Plan: nebs (4) CAD (coronary artery disease), [place] coronary artery Plan: ASA, statin for surgery in am (6) PTSD (post-traumatic stress disorder) Plan: home meds resumed
--- NOTE | 2018-07-20 12:27 | P.PNIM ---
Subjective Interval history: Patient discharge yesterday but home health could not be arranged. He is set to go home today. He feels well and has no complaints today. Physical Exam Vital signs: Last Vital Signs Temp 98.8 F 07/20/18 08:00 Pulse 83 07/20/18 09:00 Resp 18 07/20/18 08:00 BP 177/97 H 07/20/18 08:00 Pulse Ox 94 L 07/20/18 08:00 Intake & Output 07/18/18 07/19/18 07/20/18 07/21/18 06:59 06:59 06:59 06:59 Intake Total 1180 / 1180 1040 / 1040 910 / 910 Output Total 1725 / 1725 2100 / 2100 950 / 950 Balance -545 / -545 -1060 / -1060 -40 / -40 Weight 91.5 kg 90.5 kg Narrative: GENERAL: Well-developed well-nourished. In no acute distress. CARDIOVASCULAR: Regular rate and rhythm. No murmur appreciated. RESPIRATORY: No accessory muscle use. Clear to auscultation. Breath sounds equal bilaterally. MUSCULOSKELETAL: No clubbing or cyanosis. No edema. NEUROLOGICAL: Non focal. Awake and alert. Urinary Catheter Management Indwelling Temp Sensing Catheter: Cath placed during this visit: yes, but has since been removed by the nurse Urethral indwelling: No Insertion date: 07/15/18 Insertion time: 07:40 Removal date: 07/15/18 Removal time: 17:36 Results Labs CBC & Chem 7: 07/19/18 04:45 07/19/18 04:45 Assessment and Plan (1) S/P coronary artery bypass graft x 4: Code(s): Z95.1 - Presence of aortocoronary bypass graft Status: Acute (2) ACS (acute coronary syndrome): Code(s): I24.9 - Acute ischemic heart disease, unspecified Status: Acute (3) COPD (chronic obstructive pulmonary disease): Code(s): J44.9 - Chronic obstructive pulmonary disease, unspecified Status: Chronic (4) CAD (coronary artery disease), [place] coronary artery: Code(s): I25.10 - Atherosclerotic heart disease of [place] coronary artery without angina pectoris Status: Acute (5) NSTEMI (non-ST elevated myocardial infarction): Code(s): I21.4 - Non-ST elevation (NSTEMI) myocardial infarction Status: Acute (6) PTSD (post-traumatic stress disorder): Code(s): F43.10 - Post-traumatic stress disorder, unspecified Status: Chronic Plan 72-year-old male admitted with unstable angina. Heart catheterization revealed severe multi vessel disease. Coronary artery disease: Status post heart cath which showed severe multivessel disease. CT surgery following. -S/P CABG. patient did well postoperatively. -Continue on aspirin, Plavix, Amiodarone, Metoprolol. HTN -Continue amlodipine 10 mg daily and cardiac medications as above. COPD - stable nebs prn DEPRESSION ANXIETY - Took himself off his meds recently, stable CHRONIC PAIN SYNDROME -Patient used medical marijuana at home. DC home with home health today. Progress Note: Quality VTE Deep Vein Thrombosis/Pulmonary Embolism Present on Admission: No _ (1) COPD (chronic obstructive pulmonary disease) Qualifiers: COPD type: Chronic bronchitis type: Emphysema type: (2) CAD (coronary artery disease), [place] coronary artery Qualifiers: [place] vs. transplanted heart: Associated angina:
== END 2018-07-20 11:45 | disposition home health service (06) ==
LOC: NEPC 16:23 → NEDH 18:22 → NEPGCP 20:27 → HCIS 07-13 11:56 → HCPC 07-13 16:11 → HCVI 07-14 20:53 → HCPC 07-16 11:01
PROVIDERS: ADMIT Family Medicine; ATTEND Family Medicine
DX: K21.9 Gastro-esophageal reflux disease without esophagitis; F41.8 Other specified anxiety disorders; M54.30 Sciatica, unspecified side; G89.4 Chronic pain syndrome; K02.9 Dental caries, unspecified; I25.110 Atherosclerotic heart disease of native coronary artery with unstable angina pectoris; F17.210 Nicotine dependence, cigarettes, uncomplicated; M25.511 Pain in right shoulder; F43.10 Post-traumatic stress disorder, unspecified; J43.9 Emphysema, unspecified; B18.1 Chronic viral hepatitis B without delta-agent; Z79.899 Other long term (current) drug therapy; M25.512 Pain in left shoulder; Z82.49 Family history of ischemic heart disease and other diseases of the circulatory system; F12.90 Cannabis use, unspecified, uncomplicated; I10 Essential (primary) hypertension; I21.4 Non-ST elevation (NSTEMI) myocardial infarction; G25.0 Essential tremor